=== PATIENT | male | born 1950 | race Caucasian/White ===

== ENCOUNTER → 2023-09-15 09:37 | Outpatient (REF) | payer MEDICARE, OTHER, SELFPAY | LOC: HWRAD 09:37 | PROVIDERS: ATTENDING PHYSICIAN Internal Medicine; FAMILY PHYSICIAN Family Medicine | DX: Z12.11 Encounter for screening for malignant neoplasm of colon (principal) | CPT/HCPCS: 74261 ==

== ENCOUNTER 2023-12-24 06:13 | Day surgery (SDC) | payer MEDICARE, OTHER, SELFPAY ==
[2023-12-24 08:22] VITALS: BP 119/66
[2023-12-24 08:42] VITALS: BMI 20.3
[2023-12-24 11:31] VITALS: BP 119/70
[2023-12-24 11:45] VITALS: BP 120/74
[2023-12-24 12:00] VITALS: BP 129/76
== END 2023-12-24 12:12 | disposition home or self-care (01) ==
LOC: SDS 06:13
PROVIDERS: ATTENDING PHYSICIAN Internal Medicine Gastroenterology
DX: C18.4 Malignant neoplasm of transverse colon (principal); D12.3 Benign neoplasm of transverse colon; K57.30 Diverticulosis of large intestine without perforation or abscess without bleeding; K64.0 First degree hemorrhoids; Q43.8 Other specified congenital malformations of intestine
CPT/HCPCS: 45386; 45385; 45380; 45381; 88305; 88342; C1726

== ENCOUNTER → 2024-01-12 10:04 | Outpatient (REF) | payer MEDICARE, OTHER, SELFPAY | LOC: RAD 10:04 | PROVIDERS: ATTENDING PHYSICIAN Surgery; FAMILY PHYSICIAN Family Medicine | DX: C18.4 Malignant neoplasm of transverse colon (principal) | CPT/HCPCS: 71260; 74177; Q9967 ==

== ENCOUNTER 2024-01-22 09:16 | Inpatient (IN) | payer MEDICARE, OTHER, SELFPAY ==
[2024-01-15 06:53] VITALS: BMI 24.8
[2024-01-15 08:59] LABS: INR 0.94; PT 12.6 Sec (11.4-14.6)
[2024-01-15 09:00] LABS: APTT 34.9 Sec (23.4-35.0)
[2024-01-22] VITALS (19 sets, daily range): BP systolic 91–144; BP diastolic 47–76; BMI 24.8
[2024-01-22] MEDS: TYLENOL 1000 MG PO (08:52)
[2024-01-22] MEDS: NORMOSOL-R 1000 IV ×2 (08:53→13:58)
[2024-01-22] MEDS: NEURONTIN 600 MG PO (08:53)
[2024-01-22] MEDS: ENTEREG 12 MG PO (08:53)
--- NOTE | 2024-01-22 12:45 | W.IMMPOSTOP ---
Addendum entered and electronically signed by Geovanny Romero MD 01/22/24 12:57:
Vamshi's significant other, Mary Lou, updated via voicemail message.
Original Note:
Surgical Immed Post Op Note
-
Primary Surgeon: Gigi Romero MD
Assisting Surgeon: JOSE Rivera
Pre-op Diagnosis: Transverse colon cancer
Post-op Diagnosis: same
Procedure Performed: robotic right colectomy
Anesthesia Type: general plus local
Specimen / Cultures: right colon (to include portion of transverse colon)
Estimated Blood Loss: 25 cc
Complications: no immediate
Operative Findings: 1) tumor with associated tattoo in proximal transverse colon 2) no obvious metastases
Hutchinson in bladder.
Will send to med surg.
[2024-01-22 13:39] LABS: % Basophils 0.2 % (0-2); % Eosinophils 0.1 % (0-6); % Immature Granulocytes 0.6 % (0-0.5); % Lymphocytes 5.8 % (20.5-51.1); % Monocytes 1.2 % (1.7-9.3); % Neutrophils 92.1 % (42.2-75.2); Absolute Immature Granulocytes 0.1 10^3/uL (0-0.05); Absolute Lymphocytes 0.7 10^3/uL (1.2-3.4); Absolute Monocytes 0.1 10^3/uL (0.1-0.6); Absolute Neutrophils 10.3 10^3/uL (1.4-6.5); Hematocrit 37.6 % (39.0-52.0); Mean Corp Hgb Conc. 34.6 g/dL (33.0-37.0); Mean Corpuscular Volume 89.7 fL (80.0-94.0); Mean Platelet Volume 9.5 fL (7.4-10.4); Nucleated Red Blood Cells % 0 % (-); Platelet Count 255 10^3/uL (130-400); Red Blood Cell Count 4.19 10^6/uL (4.70-6.10); Red Cell Dist. Width 14.6 % (11.5-14.5); White Blood Cell Count 11.2 10^3/uL (4.8-10.8)
[2024-01-22] MEDS: TORADOL 15 MG IV ×2 (13:58→20:35)
[2024-01-22 14:09] LABS: Blood Urea Nitrogen 20 mg/dl (9-20); Calcium 8.4 mg/dl (8.4-10.2); Carbon Dioxide 21 mmol/L (22-30); Chloride 103 mmol/L (98-107); Estimated Creatinine Clearance 49 ml/min; Glucose 106 mg/dl (70-99); Magnesium 2.1 mg/dl (1.6-2.3); Potassium 4.3 mmol/L (3.5-5.1); Sodium 132 mmol/L (135-145); eGFR > 60.00
--- NOTE | 2024-01-22 16:40 | PTCARENOTE ---
Patient admitted from [facility] post robotic right colectomy for colon cancer.Vital signs are stable.All 5 lap sites are without drainage.The patient denies any pain at present.Patient is in his bed with the call ramsay in reach.
[2024-01-22] MEDS: HEPARIN 5000 UNITS SC (18:07)
[2024-01-22] MEDS: TYLENOL 650 MG PO ×2 (18:08→20:35)
[2024-01-22] MEDS: CRESTOR 10 MG PO (18:08)
[2024-01-22 21:06] LABS: Hepatitis C Antibody Negative (Negative)
[2024-01-22] MEDS: TYLENOL PO (23:02)
[2024-01-23] MEDS: TORADOL 15 MG IV ×4 (01:34→19:29)
[2024-01-23] MEDS: NORMOSOL-R 1000 IV ×2 (01:34→13:47)
[2024-01-23 03:45] VITALS: BP 119/66
[2024-01-23] MEDS: TYLENOL PO (05:06)
[2024-01-23 05:54] VITALS: BMI 24.7
[2024-01-23 06:25] LABS: % Basophils 0.1 % (0-2); % Immature Granulocytes 0.6 % (0-0.5); % Lymphocytes 9.9 % (20.5-51.1); % Monocytes 6.4 % (1.7-9.3); Absolute Immature Granulocytes 0.1 10^3/uL (0-0.05); Absolute Monocytes 0.7 10^3/uL (0.1-0.6); Absolute Neutrophils 8.5 10^3/uL (1.4-6.5); Hematocrit 37.6 % (39.0-52.0); Hemoglobin 13.1 g/dL (13.0-18.0); Mean Corp Hgb Conc. 34.8 g/dL (33.0-37.0); Mean Corpuscular Hgb 31.2 pg (27.0-31.0); Mean Corpuscular Volume 89.5 fL (80.0-94.0); Mean Platelet Volume 9.4 fL (7.4-10.4); Nucleated Red Blood Cells % 0 % (-); Platelet Count 266 10^3/uL (130-400); Red Cell Dist. Width 14.6 % (11.5-14.5); White Blood Cell Count 10.2 10^3/uL (4.8-10.8)
[2024-01-23 06:55] LABS: Blood Urea Nitrogen 23 mg/dl (9-20); Calcium 8.1 mg/dl (8.4-10.2); Carbon Dioxide 22 mmol/L (22-30); Chloride 102 mmol/L (98-107); Estimated Creatinine Clearance 54 ml/min; Glucose 97 mg/dl (70-99); Magnesium 2.3 mg/dl (1.6-2.3); Potassium 4.8 mmol/L (3.5-5.1); Sodium 133 mmol/L (135-145); eGFR > 60.00
[2024-01-23 07:56] VITALS: BP 117/60
--- NOTE | 2024-01-23 08:35 | W.PN.CRS1 ---
Today's Communication / Plan
-
Clears
DC Hutchinson
DVT PPx with Lovenox
Ambulate twice daily
Assessment/Plan
-
73-year-old male with PMH of HLD, BPH, CVA who was found to have a transverse colon mass that was not endoscopically removable, presents for elective resection
POD 1 robotic right hemicolectomy
AFVSS
WBC 10.2, Hb 13.1 from 13.0, CR 1.1, UOP 1.1 L
� Advance to clear liquids
� Continue pain control with Tylenol, Toradol, Dilaudid as needed; continue Entereg
� Will start DVT PPx with Lovenox
� DC Hutchinson, monitor for void; continue Flomax
� Continue home meds
� OOB, encourage IS, ambulate twice daily
Subjective Data
Subjective Data
Date of Service: January 23, 2024
No overnight events.
Pain controlled.
Denies nausea/vomiting. Tolerating sips.
-flatus -BMs + Hutchinson
Pt is OOB.
Objective Data
-
Vital Signs
Temp Pulse Resp BP Pulse Ox
98.8 F 52 18 117/60 100
01/23/24 07:56 01/23/24 07:56 01/23/24 07:56 01/23/24 07:56 01/23/24 07:56
Intake & Output
01/22/24 01/23/24 01/24/24
06:59 06:59 06:59
Intake Total 1180 / 1180
Output Total 1100 / 1100
Balance 80 / 80
Intake:
Oral fluids 120 / 120
IV fluids (Total) 1060 / 1060
normosol 100 / 100
Output:
Urine, Hutchinson 1100 / 1100
Lab Results
01/23/24 04:43
01/23/24 04:43
Physical Exam
-
General: No Acute Distress and AOx3
HEENT: Grossly Normal
Abdomen: Soft, Distended (Minimally distended), Tender (Appropriately tender near incisions), No Guarding and No Rebound
Neurological: Other (Moving all extremities)
Skin: Warm and Dry
Wound: No Signs of Infection, Dressing in Place (With Dermabond) and No Skin Erythema
[2024-01-23] MEDS: ENTEREG 12 MG PO ×2 (09:15→19:29)
[2024-01-23] MEDS: PROTONIX 40 MG PO (09:15)
[2024-01-23] MEDS: TYLENOL 650 MG PO ×4 (09:15→19:28)
[2024-01-23] MEDS: LOW STRENGTH ASPIRIN 81 MG PO (09:15)
[2024-01-23] MEDS: FLOMAX 0.400000000000000022 MG PO (09:15)
--- NOTE | 2024-01-23 10:04 | CM ---
Patient seen at bedside with present. Patient lives in a 2 story home with no DME and uses the [facility] on [facility]. Patient PCP is Dr. Noonan. Patient states he is independent of ADL's and IADL's prior to admission. Patient plan is home with no
needs. CM will continue to follow for discharge plan home with no needs.
Plan; home with no needs; pending functional assessments
[2024-01-23 11:27] VITALS: BP 121/68
--- NOTE | 2024-01-23 14:32 | PN.CDI ---
CDI
- -
CDI:
Physician Documentation Request
Admit Date: 01/22/24 09:16
Dear Doctor Nick,
Please review the following and provide your response in the progress notes.
Clinical Indicators:
Pt admitted with transverse colon cancer s/p resection on 01/21
Sodium levels are as below/Did get IVFs NS
01/22/24 01/23/24
13:18 04:43
Sodium 132 L 133 L
Based on the above, could you clarify in the progress notes, the appropriate diagnosis, if significant, that supports the above abnormalities and additional evaluation, monitoring and/or treatment rendered:
Hyponatremia
Abnormal lab value of clinical insignificance
Other
Use of terms such as suspected, likely, concern for, or probable (associated with a specific diagnosis that is being evaluated, monitored, or treated as if it exists) are acceptable and can be coded in the inpatient setting, when documented at the
time of discharge.
Thank you,
Radha Miguel RN
CDI Specialist
[place] [facility]
Please use your independent medical judgment in providing your response.
[2024-01-23 15:19] VITALS: BP 125/60
[2024-01-23] MEDS: CRESTOR 10 MG PO (17:19)
[2024-01-23 22:38] VITALS: BP 119/65
[2024-01-23 23:20] VITALS: BP 119/65
[2024-01-24] MEDS: TYLENOL 650 MG PO ×4 (00:30→15:25)
[2024-01-24] MEDS: TORADOL 15 MG IV ×3 (00:30→12:25)
[2024-01-24] MEDS: TYLENOL PO (04:40)
[2024-01-24 07:00] VITALS: BP 134/67
[2024-01-24] MEDS: ENTEREG 12 MG PO (08:16)
[2024-01-24] MEDS: PROTONIX 40 MG PO (08:16)
[2024-01-24] MEDS: FLOMAX 0.400000000000000022 MG PO (08:16)
[2024-01-24] MEDS: LOW STRENGTH ASPIRIN 81 MG PO (08:16)
--- NOTE | 2024-01-24 09:56 | CM ---
Patient is for possible discharge to home today, spouse to transport no needs.
Plan; Home no needs.
--- NOTE | 2024-01-24 14:56 | W.PN.CRS1 ---
Addendum entered and electronically signed by Geovanny Romero MD 01/26/24 12:19:
Of note, patient had mild hyponatremia without significant clinical significance.
Original Note:
Today's Communication / Plan
-
Low risk
If tolerating, DC
Assessment/Plan
-
73-year-old male with PMH of HLD, BPH, CVA who was found to have a transverse colon mass that was not endoscopically removable, presents for elective resection
POD 2 robotic right hemicolectomy for transverse colon cancer
� Advance to low residue
� Continue pain control with Tylenol, Toradol, Dilaudid as needed; continue Entereg
� Continue DVT PPx with Lovenox
� Voiding; continue Flomax
� Continue home meds
� OOB, encourage IS, ambulate twice daily
Dispo�if tolerating low residue, okay for DC this evening versus tomorrow
Subjective Data
Subjective Data
Date of Service: January 24, 2024
No overnight events.
Pain controlled.
Denies nausea/vomiting. Tolerating diet.
+flatus +BMs (nonbloody) +voiding
Pt is OOB.
Objective Data
-
Vital Signs
Temp Pulse Resp BP Pulse Ox
97.7 F 50 16 134/67 98
01/24/24 07:00 01/24/24 07:00 01/24/24 07:00 01/24/24 07:00 01/24/24 07:00
Intake & Output
01/23/24 01/24/24 01/25/24
06:59 06:59 06:59
Intake Total 1180 / 1180 2460 / 2460
Output Total 1100 / 1100 1350 / 1350
Balance 80 / 80 1110 / 1110
Intake:
Oral fluids 120 / 120 1100 / 1100
IV fluids (Total) 1060 / 1060 1360 / 1360
normosol 100 / 100
Output:
Urine, Hutchinson 1100 / 1100 200 / 200
Urine, Voided 1150 / 1150
Other:
Number of approximated MODERATE 2
amounts of urine
Number of approximated LARGE 2
amounts of urine
Lab Results
01/23/24 04:43
01/23/24 04:43
Physical Exam
-
General: No Acute Distress and AOx3
HEENT: Grossly Normal
Abdomen: Soft, Non Distended, Tender (Appropriately tender), No Guarding, No Rebound and Other (Incisions well-approximated without erythema or drainage)
Neurological: Other (Moving all extremities, no gross deficits)
Skin: Warm and Dry
Wound: Dressing in Place
[2024-01-24 15:15] VITALS: BP 108/61
--- NOTE | 2024-01-24 16:25 | W.DCSUMMARY ---
Discharge Summary
Discharge Data
Date of Admission: 01/22/24
Date of Discharge: 01/24/24
-
Pending Results: No
Hospital Course
73 yo male found to have a transverse colon mass that was not endoscopically removable who presented for elective resection with robotic right hemicolectomy. He tolerated the procedure well without complication. Diet was able to be advanced and well
tolerated prior to discharge with signs of good bowel recovery. He had minimal pain post operatively. He was discharged to home with spouse with outpatient planned in the coming weeks.
Discharge Plan
-
Patient Disposition: Home (Routine Discharge)
Discharge Diagnosis/Procedures: Right hemicolectomy
Condition: Good
Diet: Low Fiber
Activity: No strenuous activity
Additional Activity: Do not lift over 10lbs until cleared by your surgeon
Driving Restrictions: Drive once comfortable twisting/off narcotics
Bathing Restrictions: OK to Shower
Wound Care: Ok to shower and wash your incisions gently with soap and water. Allow the glue to flake off on its own.
Activity Restrictions/Additional Instructions:
Call your surgeon if you have nausea with vomiting, worsening pain or a fever >100.5
Referrals:
Geovanny Romero MD [Active] - 02/06/24
Eulalio Noonan MD [Family Provider] -
Prescriptions:
New
acetaminophen [acetaminophen] 325 mg tablet
650 mg PO Q4HPRN PRN (Reason: mild pain) Qty: 1 0RF
ibuprofen 200 mg tablet
400 - 600 mg PO Q6HPRN PRN (Reason: moderate pain) Qty: 1 0RF
oxycodone 5 mg tablet
5 mg PO Q4HPRN PRN (Reason: breakthrough/severe pain) Qty: 10 0RF
Continued
tamsulosin 0.4 mg Capsule
0.4 mg PO DAILY
Co Q-10
1 tab PO DAILY
Fish Oil
1 tab PO QPM
turmeric
2 tab PO DAILY
rosuvastatin 10 mg Tablet
10 mg PO QPM Qty: 30 0RF
aspirin 81 mg Tablet,Chewable
81 mg PO DAILY Qty: 30 0RF
multivitamin Tablet
1 tab PO DAILY
Nf Cbg Cbd Hemp Oil
50 ml PO DAILY
Discontinued
metronidazole 500 mg Tablet
500 mg PO DIRECTED
neomycin 500 mg Tablet
1 g PO DIRECTED
Sutab 1.479-0.188- 0.225 gram Tablet
0 tab PO DIRECTED
Sutab 1.479-0.188- 0.225 gram Tablet
0 tab PO PER PKG DIR
Discharge Orders:
Discharge Patient (As Directed); Ordered 01/24/24
Ordered By: Jayashree Stearns
Discharge Date and Time
Print Language: MACEDONIAN
== END 2024-01-24 15:15 | disposition home or self-care (01) | DRG 330 ==
LOC: 2 SOUTH 09:16
PROVIDERS: ADMITTING PHYSICIAN Surgery; FAMILY PHYSICIAN Family Medicine
PROC: 8E0W4CZ Robotic Assisted Procedure of Trunk Region, Percutaneous Endoscopic Approach (ICD-10-PCS; 2024-01-22)
PROC: 0DTF4ZZ Resection of Right Large Intestine, Percutaneous Endoscopic Approach (ICD-10-PCS; 2024-01-22)
DX: C18.4 Malignant neoplasm of transverse colon (principal); E87.1 Hypo-osmolality and hyponatremia; E78.5 Hyperlipidemia, unspecified; N40.0 Benign prostatic hyperplasia without lower urinary tract symptoms; Z86.73 Personal history of transient ischemic attack (TIA), and cerebral infarction without residual deficits; Z79.82 Long term (current) use of aspirin; Z80.1 Family history of malignant neoplasm of trachea, bronchus and lung; Z82.49 Family history of ischemic heart disease and other diseases of the circulatory system; Z82.5 Family history of asthma and other chronic lower respiratory diseases
CPT/HCPCS: 88309; 36415; 80048; 83735; 85025; 85610; 85730; 86803; 86850; 86900; 86901; 88342; 93005; 99406; J1335

== ENCOUNTER 2024-05-20 06:20 | Day surgery (SDC) | payer MEDICARE, OTHER, SELFPAY ==
[2024-05-20] VITALS (10 sets, daily range): BP systolic 85–132; BP diastolic 52–77; BMI 24.3
[2024-05-20] MEDS: TYLENOL 1000 MG PO (06:44)
--- NOTE | 2024-05-20 07:21 | W.SUR.PREOP ---
Pre-Operative Surgical Note
-
I have examined this patient prior to the performance of the scheduled procedure.
The patient's condition is unchanged from the time of the current History and
Physical and the patient is able to undergo the scheduled procedure.
--- NOTE | 2024-05-20 07:22 | HP.FOC2 ---
Focused History & Physical
Chief Complaint
HPI:
Chief Complaint: Right inguinal hernia
HPI / Indication for Planned Procedure: Robotic right inguinal hernia repair with mesh
Relevant Past Medical History: Negative
Relevant Social History: Negative
Relevant Family History: Negative
Relevant Past Surgical History: Positive for (Robotic right colectomy)
Review of Systems
Review of Pertinent Systems: All Systems Negative
Medication
See Medication form for detailed medications: Yes
Medication List (including Herbals & OTC):
tamsulosin 0.4 mg capsule 0.4 mg PO QPM Urinary Issue 05/06/23
aspirin 81 mg chewable tablet 81 mg PO DAILY #30 tabs 05/07/23
rosuvastatin 10 mg tablet 10 mg PO QPM #30 tabs 05/07/23
Nf Cbg Cbd Hemp Oil 50 ml PO DAILY PRN Pain 12/24/23
multivitamin 1 tab PO DAILY Supplement 12/24/23
ashwagandha extract 500 mg capsule 1,000 mg PO DAILY 05/17/24
coQ10 (ubiquinol) 100 mg capsule 100 mg PO DAILY 05/17/24
turmeric root extract 500 mg capsule 1,000 mg PO DAILY 05/17/24
Medications Reviewed: Yes
Allergies and Reactions
Patient has Allergies: Yes
Noted Allergies and Reactions:
Allergy/AdvReac Type Severity Reaction Status Date / Time
doxycycline Allergy Unknown Verified 05/20/24 06:27
Pertinent Physical Exam
All Other Systems: Negative
Head/Neck: Normal
Diagnosis / Assessment
This is a 73-year-old male with a symptomatic right inguinal hernia
Plan / Procedure
Robotic right inguinal hernia repair with mesh.
Anesthesia/Sedation to be done by Anesthesia Provider: Yes
--- NOTE | 2024-05-20 09:17 | W.IMMPOSTOP ---
Surgical Immed Post Op Note
-
Primary Surgeon: Reno Katz MD
Assisting Surgeon: None
Pre-op Diagnosis: Right inguinal hernia
Post-op Diagnosis: Same
Procedure Performed: Robotic right inguinal hernia repair with mesh
Anesthesia Type: General
Specimen / Cultures: Cord lipoma
Estimated Blood Loss: 7 cc
Complications: None
Operative Findings: Distended bladder noted at the start of the case, Hutchinson placed intraoperatively and removed postoperatively. Indirect inguinal hernia with small bowel and omentum in the hernia. Cord lipoma as well as midline preperitoneal fat
also noted to be herniating through the defect. All reduced, cord lipoma removed and sent for pathology. No direct or femoral component. N.p.o. reinforced with a large right 3D max Bard soft, mid weight, uncoated polypropylene mesh.
--- NOTE | 2024-05-20 09:20 | OR.RPT ---
Operative Report
Operative Report
Patient Name: Paco Nuñez
: 1950
Date of Operation: 05/20/2024
Preoperative Diagnosis: Reducible Inguinal hernia, right
Postoperative Diagnosis: Same
Procedure(s):
Robotic right inguinal Hernia Repair with mesh, (DEJA approach)
Surgeon(s):
Dr. Katz
Industrial Safety Engineer(s):
TRANG Malhotra
Anesthesia: General
Estimated Blood Loss: 7 cc
Urine Output: None
Drains/Lines/Implants: Large 3D Max Bard mid weight mesh
Specimens: Cord lipoma
Indication for surgery: The patient has a history of groin pain and noted on exam to have a right inguinal Hernia. Following review of therapeutic options they have elected to undergo a minimally invasive repair.
Operative Findings: Distended bladder noted at the start of the case, Hutchinson placed intraoperatively and removed postoperatively. No left inguinal hernia noted. Right indirect inguinal hernia with small bowel and omentum in the hernia. Cord lipoma
as well as midline preperitoneal fat also noted to be herniating through the defect. All reduced, cord lipoma removed and sent for pathology. No direct or femoral component. N.p.o. reinforced with a large right 3D max Bard soft, mid weight,
uncoated polypropylene mesh.
Details of the operation:
The patient was brought to the Operating Room and placed in the supine position with the arms tucked. IV antibiotics were infused and Venodyne stockings placed. Following uneventful induction of general endotracheal anesthesia, an orogastric tube
were placed. The abdomen was prepped and draped in the usual sterile fashion. The abdomen was entered using a Veress technique which required 1 pass, pneumoperitoneum to 15 mmHg was obtained without difficulty. An 8mm trochar was passed through
the abdominal wall roughly 20 cm cephalad to the inguinal canal. We then confirmed that no inadvertent injury was made while passing the trocar or Veress needle. We then placed two additional 8 mm ports in the left upper and right upper quadrants.
We did reuse his left upper quadrant port sites from his prior colon operation. We then docked the robot with a Prograsper in the left hand port and monopolar scissors in the right. We immediately noted a very distended bladder despite the
patient voiding prior to the OR. I had the circulating nurse place a Hutchinson catheter sterilely under the drapes which was done without issue. No hernia defect was noted on the left, an indirect right inguinal hernia defect on the right was noted
with small bowel which was easily reduced with external pressure and omentum which was tethered in the hernia defect. We began by carefully excising the omentum off of the hernia sac using electrocautery. We then created a flap at the level of the
ASIS laterally working our way medially to the medial umbilical fold. Staying onto the peritoneum we were able to circumferentially dissect around the hernia sac and and peel it off of the underlying spermatic cord and testicular vessels, taking
care to preserve them. Medially we identified the midline pubis as well as Joni's ligament and ensured to dissect 2 cm below the pubic rim over the bladder. After exposure of the entire myopectineal orifice we identified and reduced: A medium
sized indirect inguinal hernia, no direct inguinal hernia, no femoral hernia, a medium cord lipoma, which was removed. A Ray-Rosalind was placed in the abdomen briefly to help mop up some of the bleeding, which was mostly from raw surface whose, likely
secondary to his baby aspirin and fish oil use. Hemostasis was confirmed.
We then fixated a large 3D max mesh with a 2-0 Vicryl stitch at coopers medially and superior laterally. The flap was then closed with a running 2-0 barbed monocryl suture ensuring that the tail was cut flush with the medial fat pad so that no
barbs were exposed. During the closure of the flap an Angiocath was inserted and 20 cc of quarter percent Marcaine was instilled. The area in the flap cavity was then evacuated of air confirming that the mesh was flush and there were no folds.
The Ray-Rosalind, all needles and instruments were then removed and the robot was undocked. The abdomen was then desufflated, and pneumoperitoneum evacuated. All skin sites were then closed with 4-0 Monocryl followed by Dermabond. Counts were correct
and overall, the patient tolerated the procedure well and was taken to the Recovery Room postoperatively in stable condition. The Hutchinson was removed at the end of the case.
I was the attending physician and performed the procedure with assistance of the PA above. The assistance of TRANG Malhotra was required due to the complexity of the procedure. During the procedure Nubia assisted with retraction, resection, and
closure of the wound. I was present for all portions of the case, excluding skin closure.
Reno Katz MD
== END 2024-05-20 12:07 | disposition home or self-care (01) ==
LOC: SDS 06:20
PROVIDERS: ATTENDING PHYSICIAN Surgery
DX: K40.90 Unilateral inguinal hernia, without obstruction or gangrene, not specified as recurrent (principal)
CPT/HCPCS: 49650; 88304; C1781

== ENCOUNTER 2024-09-02 21:26 | Inpatient (IN) | payer MEDICARE, OTHER, SELFPAY ==
[2024-09-02 14:16] VITALS: BMI 25.5
[2024-09-02 14:20] VITALS: BP 141/71
--- NOTE | 2024-09-02 14:29 | ED.GENMED ---
ED Provider Triage
<Maria Guadalupe Medina PA-C - Last Filed: 09/02/24 19:44>
-
Patient seen by provider in Triage?: Seen in Triage
Attestation: A medical screening examination has been initiated by a qualified medical provider. Based on the assessment performed at this time, it has been determined that an emergent medical condition may exist and the patient has been informed
that further medical evaluation and possible additional diagnostic testing may be needed.
HPI: 73yoM here for constipation and bloating. Last BM 6 days ago. Passing only a small amount of flatus. One episode of vomiting last night. Also c/o L flank pain. Hx of colon cancer s/p colectomy. Sent in by colorectal surgery for concern for a
blockage.
GENERAL: Alert , in no apparent distress
EYE: No visual abnormalities.
NECK: Trachea midline
ENT: No visible abnormalities.
LUNGS: No acute respiratory distress
NEUROLOGICAL: Alert and oriented
SKIN: Skin intact. No visible changes.
MUSCULOSKELETAL: Moving extremities normally
PSYCH: Normal and appropriate interaction.
This is a medical evaluation conducted in person to initiate diagnostic evaluation and provide initial therapeutics. Please see further documentation by the treating clinician.
Abdominal labs, UA, and CT abdomen with PO contrast ordered.
History of Present Illness
<Maria Guadalupe Medina PA-C - Last Filed: 09/02/24 19:44>
General
Chief Complaint: Bowel Problem
Source: patient
Exam Limitations: none
Time Seen by Provider: 09/02/24 18:21
History of Present Illness
History of Present Illness:
73yoM with a history of hyperlipidemia, colon cancer s/p colectomy, and right inguinal hernia repair presenting for evaluation of constipation and abdominal pain. He has been constipated for about a week. Patient is having generalized abdominal
pain as well as bloating. He had an episode of vomiting last night but none since. He has not passed any gas today. He called his colorectal surgery team today and talked to the PA on-call. He was instructed to go to the ED for concern for a
blockage. Patient also reports some left lower back/flank pain. He denies any fevers or urinary symptoms.
Past History
<Maria Guadalupe Medina PA-C - Last Filed: 09/02/24 19:44>
Past History
ED Past Medical History: Hypercholesterolemia
ED Past Surgical History: Orthopedic
Social History
Tobacco: Smoker (Pipe)
Phy Exam
<Maria Guadalupe Medina PA-C - Last Filed: 09/02/24 19:44>
General Physical Exam
General Presentation: well appearing and no apparent distress
General Skin: warm and dry
General Habitus: normal
General Mental: alert
ENT Exam
ENT Exam: normocephalic
Cardiovascular Exam
Cardiovascular Exam: regular rate/rhythm
Pulmonary Exam
Pulmonary Exam: lungs clear, no respiratory distress, no rales, no crackles and no rhonchi
Gastrointestinal Exam
Gastrointestinal Exam: distended and other (Abdomen distended with generalized tenderness. No rebound or guarding. )
Neurological Exam
Neurological Exam: alert
Pari Coma Scale
Eye Opening: Spontaneous
Verbal Response: Oriented
Motor Response: Obeys Commands
GCS Total Score: 15
Skin Exam
Skin Exam: normal color and warm/dry
Psychiatric Exam
Psychiatric Exam: normal mood/affect
Course
<Maria Guadalupe Medina PA-C - Last Filed: 09/02/24 19:44>
Orders/Labs/Results
Orders:
Orders
09/02/24 14:28
Iohexol [Omnipaque] See Protocol PO NOW STA
09/02/24 14:29
CT Abd/pel W Iv And Oral Contr Urgent
Comment:
Reason For Exam: abd bloating/pain, constipation
Urinalysis Reflex To Culture Urgent
09/02/24 14:31
Complete Blood Count/With Diff Urgent
Comprehensive Metabolic Panel Urgent
Lipase Urgent
09/02/24 18:22
0.9% Sodium Chloride 500 ml [Nss] 500 ml IV BOLUS
09/02/24 18:55
CT Abd/pel Without Iv Or Oral IN AM
Comment: Colorectal requesting CT before 8 AM
Reason For Exam: abd pain, possible obstruction
Consult Colorectal Surgery [ColoRectal Surgery Consult] Urgent
Consulting Provider: Geovanny Romero
Was physician already notified: Yes
09/02/24 18:57
Hutchinson Placement- Treatment ONCE
Reason for insertion: Acute Retention
09/02/24 19:30
NG Tube [GI tube insertion- Treatment] ONCE
Lidocaine 2% [Lidocaine Uro-Jet 2%] 1 syringe .ROUTE .K-MED ONE
Abnormal Lab Results
09/02/24
14:31
RBC 4.23 L 10^6/uL
(4.70-6.10)
Hgb 12.9 L g/dL
(13.0-18.0)
Hct 38.5 L %
(39.0-52.0)
RDW 14.6 H %
(11.5-14.5)
Abs Immat Gran (auto) 0.1 H 10^3/uL
(0-0.05)
Absolute Neuts (auto) 7.5 H 10^3/uL
(1.4-6.5)
Absolute Monos (auto) 1.0 H 10^3/uL
(0.1-0.6)
Immature Gran % 0.6 H %
(0-0.5)
Lymphocytes % 14.8 L %
(20.5-51.1)
Monocytes % 9.6 H %
(1.7-9.3)
Sodium 134 L mmol/L
(135-145)
BUN 40 H mg/dl
(9-20)
Creatinine 1.6 H mg/dL
(0.7-1.3)
Glucose 101 H mg/dl
(70-99)
09/02/24 14:31
09/02/24 14:31
Vital Signs
Initial and Last Documented VS:
Initial Vital Signs
Temp Pulse Resp BP Pulse Ox
97.6 F 65 16 141/71 99
09/02/24 14:20 09/02/24 14:20 09/02/24 14:20 09/02/24 14:20 09/02/24 14:20
Last Documented Vital Signs
Temp Pulse Resp BP Pulse Ox
97.6 F 65 16 141/71 99
09/02/24 14:20 09/02/24 14:20 09/02/24 14:20 09/02/24 14:20 09/02/24 14:20
<Kulwant Pabon, DO - Last Filed: 09/02/24 19:14>
Orders/Labs/Results
Orders:
Orders
09/02/24 14:28
Iohexol [Omnipaque] See Protocol PO NOW STA
09/02/24 14:29
CT Abd/pel W Iv And Oral Contr Urgent
Comment:
Reason For Exam: abd bloating/pain, constipation
Urinalysis Reflex To Culture Urgent
09/02/24 14:31
Complete Blood Count/With Diff Urgent
Comprehensive Metabolic Panel Urgent
Lipase Urgent
09/02/24 18:22
0.9% Sodium Chloride 500 ml [Nss] 500 ml IV BOLUS
09/02/24 18:55
CT Abd/pel Without Iv Or Oral IN AM
Comment: Colorectal requesting CT before 8 AM
Reason For Exam: abd pain, possible obstruction
Consult Colorectal Surgery [ColoRectal Surgery Consult] Urgent
Consulting Provider: Geovanny Romero
Was physician already notified: Yes
09/02/24 18:57
Hutchinson Placement- Treatment ONCE
Reason for insertion: Acute Retention
09/02/24 19:30
NG Tube [GI tube insertion- Treatment] ONCE
Lidocaine 2% [Lidocaine Uro-Jet 2%] 1 syringe .ROUTE .STK-MED ONE
Abnormal Lab Results
09/02/24
14:31
RBC 4.23 L 10^6/uL
(4.70-6.10)
Hgb 12.9 L g/dL
(13.0-18.0)
Hct 38.5 L %
(39.0-52.0)
RDW 14.6 H %
(11.5-14.5)
Abs Immat Gran (auto) 0.1 H 10^3/uL
(0-0.05)
Absolute Neuts (auto) 7.5 H 10^3/uL
(1.4-6.5)
Absolute Monos (auto) 1.0 H 10^3/uL
(0.1-0.6)
Immature Gran % 0.6 H %
(0-0.5)
Lymphocytes % 14.8 L %
(20.5-51.1)
Monocytes % 9.6 H %
(1.7-9.3)
Sodium 134 L mmol/L
(135-145)
BUN 40 H mg/dl
(9-20)
Creatinine 1.6 H mg/dL
(0.7-1.3)
Glucose 101 H mg/dl
(70-99)
09/02/24 14:31
09/02/24 14:31
Vital Signs
Initial and Last Documented VS:
Initial Vital Signs
Temp Pulse Resp BP Pulse Ox
97.6 F 65 16 141/71 99
09/02/24 14:20 09/02/24 14:20 09/02/24 14:20 09/02/24 14:20 09/02/24 14:20
Last Documented Vital Signs
Temp Pulse Resp BP Pulse Ox
97.6 F 65 16 141/71 99
09/02/24 14:20 09/02/24 14:20 09/02/24 14:20 09/02/24 14:20 09/02/24 14:20
<Maria Guadalupe Medina PA-C - Last Filed: 09/02/24 19:44>
MDM/Problems Addressed
Differential Diagnosis Includes:
73yoM here with constipation x 1 week and abdominal pain/bloating. Hx of colon cancer s/p colectomy. VSS. He is well appearing in no distress. Abdomen is distended with generalized tenderness. No signs of peritonitis noted. Differential diagnosis
includes but is not limited to: constipation, bowel obstruction, perforated viscous, stercoral colitis
Initial ED plan: Patient initially seen in triage. Labs show a creatinine of 1.6 which is increased compared to baseline of 1.1. CT performed with IV and PO contrast. Results are pending. IV fluid bolus ordered.
<Maria Guadalupe Medina PA-C - Last Filed: 09/02/24 19:44>
*Critical Care Note
Total Time (30-74mins, 75-104mins- exclusive of procedures): Not Applicable
<Maria Guadalupe Medina PA-C - Last Filed: 09/02/24 19:44>
Update Note
Update Note:
CT shows findings concerning for a large bowel obstruction and sigmoid stricture. Imaging also shows distended bladder. Patient was evaluated by colorectal surgery at bedside. Plan is for Hutchinson catheter and NG tube placement. Repeat CT scan
planned for the morning to determine next steps. No indication for acute surgical intervention. Patient admitted to the hospitalist service for further management.
ED Attending Note
<Maria Guadalupe Medina PA-C - Last Filed: 09/02/24 19:44>
-
Portions of this chart may have been created with voice recognition software.� Occasional wrong word or��sound alike� substitutions may have occurred due to the inherent limitations of voice recognition software.
<Kulwant Pabon DO - Last Filed: 09/02/24 19:14>
ED Attending Note
Patient seen and examined by attending physician: Yes
I performed the substantive portion of visit, reviewed & personally made and approve the management plan that is documented in note by myself or MELINA.: Yes
ED Attending Note:
I have seen and evaluated the patient with a [id number] encounter. I have spoken to the advance practicer provider and involved in the medical history, the physical exam, medical decision making.
Evaluation and management service: agree unless noted differently below.
Results interpretation: agree unless noted differently below.
Focused HPI: 73-year-old male presenting with abdominal pain, distention and decreased bowel movements for a week. Patient had right hemicolectomy 6 to 7 months ago for stage I colon cancer
Physical exam: Distended abdomen. Mildly uncomfortable
Medical Decision Making: Colorectal surgery evaluated the patient. Apparently, there is concern for possible sigmoid stricture. They suggest admit and will follow in the morning for repeat CT to assess for obstruction. Will place Hutchinson catheter
for urinary distention. Patient understands that if he feels worse or develops nausea and vomiting, will place NG tube
Discharge Plan
Departure
Patient Disposition: Admit
Date of Disposition: 09/02/24
Time of Disposition: 19:08
Presentation/result/management discussed w/ accepting MD/DO: Hospitalist
Discharge Problem:
Large bowel obstruction, Acute kidney injury
Prescriptions:
No Action
tamsulosin 0.4 mg Capsule
0.4 mg PO QPM
rosuvastatin 10 mg Tablet
10 mg PO QPM Qty: 30 0RF
aspirin 81 mg Tablet,Chewable
81 mg PO DAILY Qty: 30 0RF
multivitamin Tablet
1 tab PO DAILY
Nf Cbg Cbd Hemp Oil
50 ml PO DAILYPRN PRN (Reason: mild Pain)
turmeric root extract 500 mg Capsule
1,000 mg PO DAILY
coQ10 (ubiquinol) 100 mg Capsule
100 mg PO DAILY
acetaminophen [acetaminophen] 325 mg tablet
650 mg PO Q6HPRN PRN (Reason: mild pain) Qty: 14 0RF
polyethylene glycol 3350 [Miralax] 17 gram Powder In Packet
17 g PO DAILYPRN PRN (Reason: constipation)
ciprofloxacin HCl 500 mg Tablet
500 mg PO BID
Patient Comments:
patien to take for 14 days starting 08/31/24
docusate sodium [Colace] 100 mg Capsule
100 mg PO BIDPRN PRN (Reason: constipation)
Interventions
Interventions:
*Risk Screen - Suicide Last Done: 09/02/24 14:20
*General Assessment Last Done: 09/02/24 14:20
*ED COVID-19 Vaccine History Last Done: 09/02/24 14:20
Discharge Date and Time
Print Language: YI
[2024-09-02] MEDS: OMNIPAQUE 50 ML PO (14:34)
[2024-09-02 14:43] LABS: % Basophils 0.3 % (0-2); % Eosinophils 0.3 % (0-6); % Immature Granulocytes 0.6 % (0-0.5); % Lymphocytes 14.8 % (20.5-51.1); % Monocytes 9.6 % (1.7-9.3); % Neutrophils 74.4 % (42.2-75.2); Absolute Immature Granulocytes 0.1 10^3/uL (0-0.05); Absolute Lymphocytes 1.5 10^3/uL (1.2-3.4); Absolute Neutrophils 7.5 10^3/uL (1.4-6.5); Hematocrit 38.5 % (39.0-52.0); Hemoglobin 12.9 g/dL (13.0-18.0); Mean Corp Hgb Conc. 33.5 g/dL (33.0-37.0); Mean Corpuscular Hgb 30.5 pg (27.0-31.0); Mean Platelet Volume 9.2 fL (7.4-10.4); Nucleated Red Blood Cells % 0 % (-); Platelet Count 318 10^3/uL (130-400); Red Blood Cell Count 4.23 10^6/uL (4.70-6.10); Red Cell Dist. Width 14.6 % (11.5-14.5); White Blood Cell Count 10.1 10^3/uL (4.8-10.8)
[2024-09-02 15:07] LABS: ALT (SGPT) 22 U/L (0-50); AST (SGOT) 28 U/L (17-59); Albumin 4.1 g/dl (3.5-5.0); Alkaline Phosphatase 71 U/L (38-126); Blood Urea Nitrogen 40 mg/dl (9-20); Carbon Dioxide 25 mmol/L (22-30); Chloride 98 mmol/L (98-107); Glucose 101 mg/dl (70-99); Lipase 46 U/L (23-300); Potassium 4.8 mmol/L (3.5-5.1); Sodium 134 mmol/L (135-145); Total Bilirubin 0.9 mg/dl (0.2-1.3); Total Protein 6.8 g/dl (6.3-8.2); eGFR 45.21
[2024-09-02] MEDS: NSS 500 IV (18:47)
--- NOTE | 2024-09-02 19:10 | CON.CRS ---
Consultation
-
Reason for Consultation: Concern for bowel obstruction
Medical History
-
Chief Complaint: No BM for a week
History of Present Illness:
Patient is 73-year-old male well-known to me as I previously performed a robotic right colectomy on him for stage I colon cancer 7 months ago on 01/22/2024. Prior to that operation, he had undergone a colonoscopy by Dr. Olivares where she could not
get through the sigmoid with concern for sigmoid stenosis. This was followed by a colonoscopy by Dr. Pino Aaron who was able to maneuver through the sigmoid successfully and get to the tumor in the proximal transverse colon. Of note the patient also
underwent a robotic right inguinal hernia repair with mesh by Dr. Reno Katz more recently on 05/20/2024. He has been doing well until taking a vacation with his this past week when he started feeling that he could not urinate and had lower
abdominal discomfort. His presumed that he had a UTI. He was ultimately put on Cipro empirically by his PCP. Per the patient, there was blood in his urine that led the PCP to put him on the antibiotic. Synchronously, the patient has noticed
that he has not had a BM for about a week. He also has been having some abdominal discomfort and distention. He had 1 bout of emesis last night. He reached out to my office earlier today and evaluation in the ER was recommended. Blood work in
the ER reveals a normal white count of 10.1. Interestingly his BUN and creatinine are elevated at 40 and 1.6. His prior creatinine on 01/23/2024 was normal at 1.1. He is afebrile with stable vitals. He did undergo a CT of the abdomen and pelvis
with IV and oral contrast in the ER. I reviewed the images with Dr. Lima of radiology. This reveals moderate small bowel distention without a transition point. There is a normal-appearing patent ileal transverse colon anastomosis. The colon
itself is not practically distended but is filled with fluid/matter. The sigmoid is somewhat decompressed. Interestingly the bladder is quite distended, in fact severely so, and this is pushing on the sigmoid as well as causing bilateral
hydronephrosis. Dr. Yadav recommended Hutchinson insertion as a first step. I evaluated the patient in the ER with his at the bedside. He denies nausea currently.
Past Medical History
Past Medical History: Hypercholesterolemia and Other (BPH/elevated PSA; Lyme's disease; mini stroke)
Past Surgical History: Other (As above plus left total hip replacement.)
Social History
Tobacco: Smoker
Alcohol: Daily
Personal:
Living: With Family
Family History
Family History: Reviewed & Not Pertinent
Allergies / Home Medications
Allergy/AdvReac Type Severity Reaction Status Date / Time
doxycycline Allergy Unknown Verified 09/02/24 14:27
�Medication �Instructions �Recorded �Confirmed �Type
tamsulosin 0.4 mg capsule 0.4 mg PO QPM Urinary Issue 05/06/23 05/20/24 History
aspirin 81 mg chewable tablet 81 mg PO DAILY #30 tabs 05/07/23 05/20/24 Rx
rosuvastatin 10 mg tablet 10 mg PO QPM #30 tabs 05/07/23 05/20/24 Rx
Nf Cbg Cbd Hemp Oil 50 ml PO DAILY PRN Pain 12/24/23 05/20/24 History
multivitamin 1 tab PO DAILY Supplement 12/24/23 05/20/24 History
ashwagandha extract 500 mg capsule 1,000 mg PO DAILY 05/17/24 05/17/24 History
coQ10 (ubiquinol) 100 mg capsule 100 mg PO DAILY 05/17/24 05/17/24 History
turmeric root extract 500 mg 1,000 mg PO DAILY 05/17/24 05/20/24 History
capsule
acetaminophen 325 mg tablet 650 mg (2 x 325 mg) PO Q6HPRN PRN 05/20/24 Rx
mild pain #14 tabs
ibuprofen 600 mg tablet 600 mg PO Q6H PRN pain #14 tabs 05/20/24 Rx
Review of Systems
-
A 10 point review of systems was completed, and was negative except as per HPI.
Physical Exam
Vital Signs
Temp 97.6 F 09/02/24 14:20
Pulse 65 09/02/24 14:20
Resp Rate 16 09/02/24 14:20
Blood pressure 141/71 09/02/24 14:20
SaO2 99 09/02/24 14:20
Lab Results / Allergies
09/02/24 14:31
09/02/24 14:31
WBC 10.1 10^3/uL (4.8-10.8) 09/02/24 14:31
Hgb 12.9 g/dL (13.0-18.0) L 09/02/24 14:31
Hct 38.5 % (39.0-52.0) L 09/02/24 14:31
Plt Count 318 10^3/uL (130-400) 09/02/24 14:31
Abs Immat Gran (auto) 0.1 10^3/uL (0-0.05) H 09/02/24 14:31
Neutrophils % 74.4 % (42.2-75.2) 09/02/24 14:31
Allergy/AdvReac Type Severity Reaction Status Date / Time
doxycycline Allergy Unknown Verified 09/02/24 14:27
Physical Exam
General: Well Developed
Respiratory: Clear
Cardiac: Regular Rhythm
GI: Tender (Mild in all 4 quadrants) and Distended
Skin: Warm
Neuro: AO x 3
Psych: Calm
Data Reviewed
-
CT Scan: Image Personally Visualized and interpreted, Report Reviewed by me, Discussed with Physician, Discussed with Patient and Discussed with Family
Labs: Labs Reviewed by me, Discussed with Physician, Discussed with Patient and Discussed with Family
Old Records: Reviewed
Assessment / Plan
-
73-year-old male about 7 months status post robotic right colectomy for stage I colon cancer and a known sigmoid stricture in the hospital with decreased bowel function, abdominal distention, and mild abdominal discomfort. I am concerned about the
possibility of large bowel obstruction due to sigmoid stricture. Imaging inconclusive due to lack of contrast progression however does show some small and large bowel distention. As an aside the bladder is quite distended and there is bilateral
hydronephrosis and an elevated creatinine. This may be related to his BPH history. Regardless recommend upfront placement of Hutchinson to decompress the bladder to see if this helps. Recommend NG tube placement to decompress his GI tract. Keep
n.p.o. and hydrate with IV fluids. Will repeat CT early a.m. without contrast to look for oral contrast progression. If this is a large bowel obstruction, the lack of the ileocecal valve makes it unlikely that he will perforate overnight. I
communicated with Dr. Pino Aaron of GI to put the patient on his radar as options with large bowel obstruction depending on CT results tomorrow may include colonic stent placement versus surgical intervention with likely colostomy. The patient is
aware of all the above as well.
[2024-09-02 19:13] VITALS: BP 126/81
--- NOTE | 2024-09-02 19:55 | W.PN.UPDATE ---
Update Note
Progress Note Update
Patient seen in conjunction with [facility]. I concur with the history and physical as well as the assessment and plan.
This is a 72-year-old with past medical history significant for colon cancer status post colectomy 5 months ago presenting to the emergency department with approximately 1 week of increasing abdominal distention, constipation and urinary retention.
Patient reported that he just arrived from a trip 7 days ago and was having difficulty urinating. At that time he visited his physician and had a urinalysis which had some blood in it was thought to have a urinary tract infection. He was
apparently started on ciprofloxacin at that time. Since then the patient has reported with no stool output. He states he passes gas only occasionally. He has had increasing abdominal bloating and constipation. He is intolerant of p.o. over the
last significant oral intake about 3 days ago. He states that his urine output is limited. Reported vomiting once last night which was subsequent to large water intake to help constipation. He denies any bilious emesis. He denies any bloody
emesis. Patient denies having any fevers or chills.
In the emergency department he was afebrile, blood pressure was 140/70 with a pulse of 65 and was satting 99% on room air. CBC was unremarkable. Electrolytes BUN/creatinine were notable for a creatinine of 1.6 which is up from his baseline of 1.0.
A CT of the abdomen pelvis shows a distended bladder, dilated loops of small bowel with narrowing at the sigmoid colon without any specific transition point.
1. SBO - h/o colectomy possibly related to prior surgery, stricture or bladder compression from severe urinary retention.
- admit to med / surg
- NPO for now, IV fluids with D5 LR
- pain control and antiemetics
- NG tube per surgery
- urinary decompression with sosa
- repeat CT scan in am
- surgery aware and consulted
2. Urinary retention - retention with YEIMY. 1.5 L retention per sosa placement.
- IV fluids for now
- continue sosa
- continue tamsulosin
- check u/a and urine culture
- complete course of cipro iv
- urology consult
DVT PPX - heparin sq
Code status - Full Code
[2024-09-02 20:00] VITALS: BP 150/69
--- NOTE | 2024-09-02 20:07 | HPS.HSE ---
Family Physician
-
Family Physician: Eulalio Noonan
Chief Complaint
-
Constipation x 1 week, unable to urinate x 1 week
History of Present Illness
73-year-old male complaining of difficulty urinating this past week with lower abdominal discomfort. Patient states they went away on vacation for a week and he realized a couple days into his trip he forgot his Flomax. He was having progressive
difficulty urinating. Upon arrival home his presumed that he had a UTI, she was not aware he forgot his Flomax.. He was put on Cipro empirically by his PCP. Per the patient there was blood in his urine that led the PCP to put him on the
antibiotic at the same time he noticed that he had not had a bowel movement for approximately 1 week had some abdominal discomfort and distention leading to 1 bout of vomiting last night. He was seen by Dr. Romero in the office yesterday noted to
have elevated bun of 40 and creatinine 1.6. He had a CT of the abdomen pelvis with IV and oral contrast in the ER today showing moderate small bowel distention without transition point normal-appearing patent ileal transverse colon anastomosis.
The bladder is quite distended is pushing on the sigmoid as well as causing bilateral hydronephrosis. He had Hutchinson catheter inserted.
He was diagnosed with stage I colon cancer 7 months ago on 01/22/2024. He had a robotic right colectomy completed. He had undergone a colonoscopy by Dr. Olivares but was unable to get through the sigmoid with concern for sigmoid stenosis. Colonoscopy
was followed by Dr. Garcia who was able to maneuver through the sigmoid successfully get into the tumor in the proximal transverse colon. He underwent a robotic right inguinal hernia repair with mesh by Dr. Reno Katz recently on 05/20/2024. His
other past medical history includes HLD, BPH, elevated PSA, Lyme's disease, TIA, smoker, daily alcohol use,stage I colon cancer 7 months ago on 01/22/2024. He had a robotic right colectomy completed.
Medical History
Past Medical History
Past Medical History: Reports Other
Additional Past Medical History:
HLD
BPH, elevated PSA
Lyme's disease
TIA,
smoker,-pipe daily
daily alcohol use 1 vodka chocolate martini
stage I colon cancer 7 months ago on 01/22/2024. He had a robotic right colectomy completed.
Past Surgical History: Reports Other
Additional Past Surgical History:
stage I colon cancer 7 months ago on 01/22/2024. He had a robotic right colectomy completed.
Social History
Tobacco: Smoker (Pipe daily)
Alcohol: Daily (Chocolate vodka martini)
Drug: None
Personal:
Living: With Family ()
Employment: Retired
Family History
Family History: Not pertinent
Allergies / Home Medications
Allergies reflects when Allergies were last updated in [facility].
Home Medications with original date entered in [facility]
Allergy/Medication List:
Allergies
Allergy/AdvReac Type Severity Reaction Status Date / Time
doxycycline Allergy Unknown Verified 09/02/24 14:27
Home Medications
tamsulosin 0.4 mg capsule 0.4 mg PO QPM Urinary Issue 05/06/23
aspirin 81 mg chewable tablet 81 mg PO DAILY #30 tabs 05/07/23
rosuvastatin 10 mg tablet 10 mg PO QPM #30 tabs 05/07/23
Nf Cbg Cbd Hemp Oil 50 ml PO DAILYPRN PRN mild Pain 12/24/23
multivitamin 1 tab PO DAILY Supplement 12/24/23
coQ10 (ubiquinol) 100 mg capsule 100 mg PO DAILY 05/17/24
turmeric root extract 500 mg capsule 1,000 mg PO DAILY 05/17/24
acetaminophen 325 mg tablet 650 mg (2 x 325 mg) PO Q6HPRN PRN mild pain #14 tabs 05/20/24
ciprofloxacin HCl 500 mg tablet 500 mg PO BID 09/02/24
docusate sodium 100 mg capsule (Colace) 100 mg PO BIDPRN PRN constipation 09/02/24
polyethylene glycol 3350 17 gram oral powder packet (Miralax) 17 g PO DAILYPRN PRN constipation 09/02/24
Review of Systems
-
History Source: Patient and Family ( at bedside)
A 12 point ROS was completed and negative except as noted: Yes
Constitutional: Denies Fever, Fatigue or Chills
EENT: Reports Other (NG tube draining brown 500 cc close look good); Denies Sore Throat or Runny Nose
Respiratory: Denies Cough or Trouble Breathing
Cardiac: Denies Chest Pain, Diaphoresis, Palpitations or Syncope
Abdomen/GI: Reports Nausea and Constipated (X 1 week); Denies Abdominal Pain, Vomiting, Diarrhea, Bloody Stools or Black Stools
: Reports Difficulty Voiding (X 1 week) and Hutchinson (Yellow in color)
Musculoskeletal: Denies Joint Pain or Edema
Skin: Denies Itching or Rash
Neurological: Denies Dizzy, Headache or Weakness
Endocrine: Reports No Symptoms
Hematologic/Lymphatic: Reports No Symptoms
Psych: Reports Calm
Physical Exam
Vital Signs
Vital Signs
Temp Pulse Resp BP Pulse Ox
97.6 F 65 16 141/71 99
09/02/24 14:20 09/02/24 14:20 09/02/24 14:20 09/02/24 14:20 09/02/24 14:20
Physical Exam
General: Comfortable and Conversant; No Pain or Fever
HEENT: NormoCephalic
Respiratory: Clear; No Wheezes, Rales or Rhonchi
Cardiac: S1/S2 and Regular Rhythm; No Murmur, Rub, Gallop or Peripheral Edema
Breast: Deferred by me
GI: Soft, Non Tender, Non Distended, Normal Bowel Sounds and No Hepatosplenomegaly
Rectal: Deferred by Provider
Genito-urinary: Hutchinson (Draining yellow in color initially drained 1.5 L)
Musculoskeletal: No Clubbing, No Cyanosis and No Edema
Skin: Warm and Dry; No Rash or Jaundice
Neuro: AO x 3, No Motor Deficits, Nonfocal/grossly intact, Cranial Nerves Intact and No Sensory Deficits; No Slurred Speech, Facial Droop, Tremors or Sedated
Psych: Calm
Laboratory Results
-
09/02/24 14:31
09/02/24 14:
Laboratory Results
Total Bilirubin 0.9 mg/dl (0.2-1.3) 09/02/24 14:
AST 28 U/L (17-59) 09/02/24 14:
ALT 22 U/L (0-50) 09/02/24 14:
Alkaline Phosphatase 71 U/L (38-126) 09/02/24 14:
Lipase 46 U/L (23-300) 09/02/24 14:
Impression/Plan
-
Impression/plan:
Admit to MedSurg
#Acute distended bladder/bilateral hydronephrosis unclear etiology possibly secondary to bowel obstruction causing secondary obstruction or vice versa
#YEIMY 2/2 urinary retention/moderate bilateral ureteral pelvicalyceal dilation/versus narrowing of sigmoid colon between bladder left iliac artery
Creat 1.6 baseline appears 1.1
#BPH Hx/elevated PSA-follows with Dr. Lipscomb
Patient had 4 doses of ciprofloxacin 500 mg he started on Friday08/31/2024
-Insert Hutchinson catheter-initially drained 1.5 L
- resume flomax
-Monitor urine output
-Check UA/ ACCOUNTS PAYABLE ADMINISTRATOR
-Consult urology
#Abdominal pain with concern of large bowel obstruction due to sigmoid stricture
-N.p.o.
-Place NG tube to decompress GI tract-drained initial 500 cc dark brown liquid
-IV fluids
-Will check CT abdomen pelvis tomorrow am
Consult Dr. Pino ALEX was made aware of Dr. Romero patient may require colonic stent placement versus surgical intervention with likely colostomy
# HLD
-Continue Crestor 10 mg every afternoon
#Daily alcohol use
Drinks 1 vodka chocolate martini daily
#Active smoker
Smokes a pipe over 50 years
-Cessation advised
#TIA hx
Lyme's disease hx
DVT prophylaxis
SCDs
Full code
[2024-09-02 20:42] LABS: Urine Albumin 1+ (Neg - Trace); Urine Bilirubin Negative (Negative); Urine Character Clear (Clear); Urine Color Yellow; Urine Glucose Negative (Negative); Urine Ketone 1+ (Negative); Urine Leukocyte 1+ (Negative); Urine Nitrite Negative (Negative); Urine Occult Blood 1+ (Negative); Urine Specific Gravity 1.015 (<1.030); Urine Urobilinogen Negative (Neg - 1+)
[2024-09-02 20:58] LABS: Urine Red Blood Cell 16-20 /HPF (0-2); Urine Squamous Cell 0-2 /LPF (Few)
[2024-09-02 20:59] LABS: Urine Bacteria Moderate (Negative); Urine White Cell 21-25 /HPF (0-5)
[2024-09-02 22:02] VITALS: BP 151/80
[2024-09-02 23:00] VITALS: BP 122/60
[2024-09-03 00:15] VITALS: BP 129/70; BMI 24.3
[2024-09-03] MEDS: NSS 1000 IV ×2 (00:49→23:05)
[2024-09-03 06:00] VITALS: BMI 24.3
[2024-09-03 07:19] VITALS: BP 125/78
--- NOTE | 2024-09-03 08:03 | W.PN.HOSP.TC ---
Addendum entered and electronically signed by Hernandez Khalil MD 09/03/24 14:16:
Bowel obstruction unclear if large or small bowel.
-Imaging studies without transition point
-Repeat abdominal x-rays in the a.m.
-Continue NGT
-Colorectal surgery may take to the OR on September 06
-Convert all PO meds to IV
Acute kidney injury secondary to postobstructive uropathy complicated by bowel obstruction
-Hutchinson placed
-Urology following
-Monitor urinary output
-Avoid nephrotoxins and hypotension
Hydronephrosis�bilateral
-Expect to improve with bladder decompression with Hutchinson being placed
Colon cancer s/p robotic right colectomy 7 months ago
BPH hold flomax until able to tolerate p.o.
Hyperlipidemia hold Crestor until able to tolerate p.o.
History of TIA hold aspirin until able to tolerate p.o.
Daily alcohol use, 1 martini daily, provide IV thiamine folate
-Without evidnece of withdrawl
Original Note:
Today's Communication/Plan
-
pending urology and surgery consult
continue IVF
continue IV Cipro
Continue NPO
continue NG tube
Assessment / Plan
Assessment / Plan
#Urinary retention/bilateral hydronephrosis of unclear etiology secondary to bowel obstruction causing secondary obstruction or vice versa
#YEIMY 2/2 urinary retention/moderate bilateral ureteral pelvicalyceal dilation/versus narrowing of sigmoid colon between bladder left iliac artery
Creatinine 1.6, baseline 1.1
Patient had 4 doses of ciprofloxacin 500 mg starting 08/31, complete course IV because currently n.p.o.
Hutchinson catheter inserted and drained 1.5 L
Resume Flomax once able to tolerate oral
Monitor urine output
UA culture pending
Urology consult pending
#Abdominal pain secondary to bowel obstruction
secondary to sigmoid stricture
N.p.o.
NG tube decompression, initially drained 500 cc dark brown liquid
Continue IV fluids, analgesics and antiemetics
CT abdomen pelvis pending today
Dr. Aaron and Dr. Romero consulted, pending final recommendations
#Hyperlipidemia
Continue Crestor once able to tolerate oral
#Daily alcohol use
Drinks 1 martini a day
#Active smoker
Smokes pipe daily for 50 years
Cessation advised
#History of TIA
Continue aspirin once able to tolerate oral
#History of Lyme disease
#DVT prophylaxis�heparin
Full code
Anticipated Discharge: > 48 hours
Subjective/Interval History
-
Date of Service: September 03, 2024
73-year-old male smoker with past medical history of hyperlipidemia, BPH, Lyme's disease, TIA, with daily alcohol use and stage I colon cancer presented to [facility] with difficulty urinating and having a bowel movement. Patient states he
feels significantly better than last night. He reports no acute complaints. He is waiting for final recommendations from colorectal surgery and urology. Currently NPO.
Objective Data
-
Labs:
Laboratory Results
09/03/24
07:43
WBC Pending
Hgb Pending
Hct Pending
Plt Count Pending
Sodium Pending
Potassium Pending
Chloride Pending
Carbon Dioxide Pending
BUN Pending
Creatinine Pending
Glucose Pending
Calcium Pending
Total Bilirubin Pending
AST Pending
ALT Pending
Alkaline Phosphatase Pending
Vital Signs:
Vital Signs
Temp Pulse Resp BP Pulse Ox
99.4 F 76 18 125/78 97
09/03/24 07:19 09/03/24 07:19 09/03/24 07:19 09/03/24 07:19 09/03/24 07:19
I&O
09/02/24 09/03/2409/04/25
06:59 06:59 06:59
Intake Total 420 / 420
Output Total 300 / 300
Balance 420 / 420 -300 / -300
Review of Systems
-
History Source: Patient
All other systems: Reviewed and negative
Constitutional: Reports No Symptoms
EENT: Reports No Symptoms Reported
Respiratory: Reports No Symptoms
Cardiac: Reports No Symptoms
Genitourinary: Reports Difficulty Voiding
Physical Exam
-
General: Well Developed, Well Nourished, No Apparent Distress, Comfortable and Conversant
HEENT: Normocephalic and Atraumatic
Respiratory: Clear to Auscultation
Cardiac: Regular Rhythm and S1/S2
GI: Soft, Tender and Distended
Musculoskeletal: No Clubbing, No Cyanosis and No Edema
Skin: Warm and Dry
Neuro: AO x 3
Psych: Calm
Data Reviewed
-
CT Scan: Report Reviewed by me
Labs: Labs Reviewed by me and Discussed with Physician
Old Records: Reviewed
[2024-09-03 08:08] LABS: % Basophils 0.6 % (0-2); % Eosinophils 0.3 % (0-6); % Immature Granulocytes 0.7 % (0-0.5); % Lymphocytes 19.2 % (20.5-51.1); % Monocytes 11.3 % (1.7-9.3); % Neutrophils 67.9 % (42.2-75.2); Absolute Immature Granulocytes 0.1 10^3/uL (0-0.05); Absolute Lymphocytes 1.4 10^3/uL (1.2-3.4); Absolute Monocytes 0.8 10^3/uL (0.1-0.6); Absolute Neutrophils 4.9 10^3/uL (1.4-6.5); Hematocrit 37.7 % (39.0-52.0); Hemoglobin 12.8 g/dL (13.0-18.0); Mean Corpuscular Hgb 30.8 pg (27.0-31.0); Mean Corpuscular Volume 90.6 fL (80.0-94.0); Mean Platelet Volume 9.4 fL (7.4-10.4); Nucleated Red Blood Cells % 0 % (-); Platelet Count 335 10^3/uL (130-400); Red Blood Cell Count 4.16 10^6/uL (4.70-6.10); Red Cell Dist. Width 14.6 % (11.5-14.5); White Blood Cell Count 7.2 10^3/uL (4.8-10.8)
--- NOTE | 2024-09-03 08:09 | CONS.URO ---
Consultation
-
Date/Time Consultation Performed: 09/03/24 0750
Performing Provider: Bird
Reason for Consultation: AUR
Medical History
History of Present Illness
Pt with colon ca s/p Robotic Right Colectomy ~ 7 months ago developed irritative and obstructive urinary symptoms for which he eventually was seen in the ED at which time CT scan demonstrated bowel obstruction and a distended urinary bladder, for
which a Hutchinson was placed, draining ~ 1.5 L of urine.
Pt reports no antecedent hx.
Past Medical History
Past Medical History: Hypercholesterolemia and Other ( Lyme's disease TIA, smoker,-pipe daily daily alcohol, stage I colon cancer)
Past Surgical History: Bowel Resection
Allergies/Home Medications
Allergies
Allergy/AdvReac Type Severity Reaction Status Date / Time
doxycycline Allergy 'felt a Verified 09/02/24 21:28
little
wacky'
Home Medications
�Medication �Instructions �Recorded �Confirmed �Type
tamsulosin 0.4 mg capsule 0.4 mg PO QPM Urinary Issue 05/06/23 09/02/24 History
aspirin 81 mg chewable tablet 81 mg PO DAILY #30 tabs 05/07/23 09/02/24 Rx
rosuvastatin 10 mg tablet 10 mg PO QPM #30 tabs 05/07/23 09/02/24 Rx
Nf Cbg Cbd Hemp Oil 50 ml PO DAILYPRN PRN mild Pain 12/24/23 09/02/24 History
multivitamin 1 tab PO DAILY Supplement 12/24/23 09/02/24 History
coQ10 (ubiquinol) 100 mg capsule 100 mg PO DAILY 05/17/24 09/02/24 History
turmeric root extract 500 mg 1,000 mg PO DAILY 05/17/24 09/02/24 History
capsule
acetaminophen 325 mg tablet 650 mg (2 x 325 mg) PO Q6HPRN PRN 05/20/24 09/02/24 Rx
mild pain #14 tabs
ciprofloxacin HCl 500 mg tablet 500 mg PO BID 09/02/24 09/02/24 History
docusate sodium 100 mg capsule 100 mg PO BIDPRN PRN constipation 09/02/24 09/02/24 History
(Colace)
polyethylene glycol 3350 17 gram 17 g PO DAILYPRN PRN constipation 09/02/24 09/02/24 History
oral powder packet (Miralax)
Physical Exam
Vital Signs
Vital Signs
Temp Pulse Resp BP Pulse Ox
99.4 F 76 18 125/78 97
09/03/24 07:19 09/03/24 07:19 09/03/24 07:19 09/03/24 07:19 09/03/24 07:19
Lab / Testing Results
Laboratory Results
09/03/24 07:43
Physical Exam
adult male in bed
NGT in place
General: No Apparent Distress
Genito-urinary: Hutchinson Catheter (draining lew urine)
Assessment / Plan
-
Urinary Retention: baseline prostatomegaly compounded by bowel obstruction with bilateral Hydroureteronephrosis and Obstructive Nephropathy and Azotemia
Rec: Hutchinson until bowel obstruction is resolved; Tamsulosin
Data Reviewed
-
CT Scan: Image personally visualized and interpreted
Lab Data: Labs Reviewed
Old Records: Reviewed
[2024-09-03 08:37] LABS: ALT (SGPT) 19 U/L (0-50); AST (SGOT) 24 U/L (17-59); Albumin 3.5 g/dl (3.5-5.0); Alkaline Phosphatase 75 U/L (38-126); Blood Urea Nitrogen 32 mg/dl (9-20); Calcium 8.9 mg/dl (8.4-10.2); Carbon Dioxide 22 mmol/L (22-30); Chloride 100 mmol/L (98-107); Estimated Creatinine Clearance 42 ml/min; Glucose 79 mg/dl (70-99); Potassium 4.5 mmol/L (3.5-5.1); Sodium 136 mmol/L (135-145); Total Bilirubin 0.9 mg/dl (0.2-1.3); eGFR 53.07
[2024-09-03] MEDS: FLOMAX PO (10:26)
--- NOTE | 2024-09-03 11:55 | W.PN.CRS1 ---
Today's Communication / Plan
-
maintain ngt
possible OR on Friday
xrays tomorrow AM
Assessment/Plan
-
73-year-old male about 7 months status post robotic right colectomy for stage I colon cancer and a known sigmoid stricture in the hospital with decreased bowel function, abdominal distention, and mild abdominal discomfort. NGT placed.
Imaging reviewed with radiology this AM. CT showed 'Persistent diffuse dilatation of small bowel with air-fluid levels. No evidence for passage of contrast material from the small bowel into the colon. Short segment of narrowing in the distal ileum,
distal to which there is no appreciable passage of enteric contrast material. This could conceivably represent the site of obstruction, although this was not clearly present on the CT abdomen/pelvis from 09/02/2024. Moderate stool throughout the
colon and rectum, without evidence for wall thickening or mass within the limitations of the lack of contrast material within the colon.'
WBC 7.2, hgb 12.8, vitals normal
-Unclear whether this is a LBO vs SBO. Discussed at length with radiologist this morning. Given there is no passage of contrast in the distal ileum, possible sbo present
-Will order abdominal xrays tomorrow to see if contrast has passed
-Possible ex lap on Friday with Dr. Romero
-Maintain NGT for now
-Okay for lovenox/heparin sq for dvt prophylaxis from our perspective
-Pre-op Friday night
Subjective Data
Subjective Data
Date of Service: September 03, 2024
Patient states he had a bowel movement earlier this morning. He feels much less distended today. He denies any abdominal pain today which is a big improvement.
Objective Data
-
Vital Signs
Temp Pulse Resp BP Pulse Ox
99.4 F 76 18 125/78 97
09/03/24 07:19 09/03/24 07:19 09/03/24 07:19 09/03/24 07:19 09/03/24 07:19
Intake & Output
09/02/24 09/03/24 09/04/24
06:59 06:59 06:59
Intake Total 420 / 420
Output Total 300 / 300
Balance 420 / 420 -300 / -300
Intake:
IV fluids (Total) 420 / 420
Output:
Gastrointestinal tube output ( 300 / 300
Total)
[place] Sump 300 / 300
Lab Results
09/03/24 07:43
09/03/24 07:43
Physical Exam
-
General: No Acute Distress and AOx3
Abdomen: Soft, Distended (Mild) and Non Tender
Skin: Warm and Dry
Data Reviewed
-
CT Scan: Image Reviewed, Report Reviewed and Discussed with Radiology
[2024-09-03] MEDS: CIPRO 400 MG 200 IV ×2 (12:01→23:05)
--- NOTE | 2024-09-03 13:24 | CM ---
estate manager reviewed patient's chart and met with patient and patient with NGT, possible OR on Friday. Patient lives with spouse in a 2 story home patient is independent with adl's and ambulation, no dme, patient drives.
PCP: Dr. Noonan
Pharmacy: [facility] on [facility].
Plan; Home when stable.
[2024-09-03 15:00] VITALS: BP 133/68
[2024-09-03] MEDS: FOLVITE 50.2 MG IV (15:35)
[2024-09-03 23:36] VITALS: BP 119/68
[2024-09-04] MEDS: HEPARIN 5000 UNITS SC ×4 (00:42→23:15)
[2024-09-04 06:00] VITALS: BMI 23.6
[2024-09-04 07:00] VITALS: BP 136/70
[2024-09-04] MEDS: THIAMINE INJECTION 100 MG IV (08:40)
[2024-09-04 08:42] LABS: % Basophils 0.4 % (0-2); % Eosinophils 0.4 % (0-6); % Immature Granulocytes 0.5 % (0-0.5); % Lymphocytes 20.7 % (20.5-51.1); % Monocytes 11.6 % (1.7-9.3); % Neutrophils 66.4 % (42.2-75.2); Absolute Lymphocytes 1.6 10^3/uL (1.2-3.4); Absolute Monocytes 0.9 10^3/uL (0.1-0.6); Absolute Neutrophils 5.2 10^3/uL (1.4-6.5); Hematocrit 38.1 % (39.0-52.0); Hemoglobin 12.3 g/dL (13.0-18.0); Mean Corp Hgb Conc. 32.3 g/dL (33.0-37.0); Mean Corpuscular Hgb 30.3 pg (27.0-31.0); Mean Corpuscular Volume 93.8 fL (80.0-94.0); Mean Platelet Volume 9.3 fL (7.4-10.4); Nucleated Red Blood Cells % 0 % (-); Platelet Count 345 10^3/uL (130-400); Red Blood Cell Count 4.06 10^6/uL (4.70-6.10); Red Cell Dist. Width 14.6 % (11.5-14.5); White Blood Cell Count 7.8 10^3/uL (4.8-10.8)
[2024-09-04 09:12] LABS: ALT (SGPT) 20 U/L (0-50); AST (SGOT) 26 U/L (17-59); Albumin 3.3 g/dl (3.5-5.0); Alkaline Phosphatase 70 U/L (38-126); Blood Urea Nitrogen 29 mg/dl (9-20); Calcium 8.4 mg/dl (8.4-10.2); Carbon Dioxide 27 mmol/L (22-30); Chloride 101 mmol/L (98-107); Estimated Creatinine Clearance 49 ml/min; Glucose 76 mg/dl (70-99); Potassium 4.3 mmol/L (3.5-5.1); Sodium 140 mmol/L (135-145); Total Bilirubin 0.9 mg/dl (0.2-1.3); Total Protein 5.7 g/dl (6.3-8.2); eGFR > 60.00
--- NOTE | 2024-09-04 10:05 | W.PN.HOSP.TC ---
Today's Communication/Plan
-
Assessment / Plan
Assessment / Plan
NAD
Scleral Anicteric
MMM
No JVD
CTABL
RRR, S1/S2
NT, Distended, BS+
Warm, Dry
AAOx3
Calm
Bowel obstruction unclear if large or small bowel.
-Imaging studies without transition point
-Repeat abdominal x-rays in the a.m.
-Continue NGT, clamped for 6 hours, follow symptomatology if nausea vomiting resume then will place back on lis to wall
-Colorectal surgery may take to the OR on September 06
Acute kidney injury secondary to postobstructive uropathy complicated by bowel obstruction, returning to baseline as expected once bladder was decompressed
-Hutchinson placed
-Urology following
-Monitor urinary output
-Avoid nephrotoxins and hypotension
Hydronephrosis�bilateral
-Expect to improve with bladder decompression with Hutchinson being placed
Colon cancer s/p robotic right colectomy 7 months ago
BPH hold flomax until able to tolerate p.o.
Hyperlipidemia hold Crestor until able to tolerate p.o.
History of TIA hold aspirin until able to tolerate p.o.
Daily alcohol use, 1 martini daily, provide IV thiamine folate
-Without evidnece of withdrawl
Anticipated Discharge: > 48 hours
Subjective/Interval History
-
Date of Service: September 04, 2024
Seen and examined. No new complaints. No acute overnight events.
Per Mr. Hayes and his that is at bedside
-Colorectal surgery already saw him, clamp NGT for 6 hours
Objective Data
-
Labs:
Laboratory Results
09/04/24
06:56
WBC 7.8
Hgb 12.3 L
Hct 38.1 L
Plt Count 345
Sodium 140
Potassium 4.3
Chloride 101
Carbon Dioxide 27
BUN 29 H
Creatinine 1.2
Glucose 76
Calcium 8.4
Total Bilirubin 0.9
AST 26
ALT 20
Alkaline Phosphatase 70
Vital Signs:
Vital Signs
Temp Pulse Resp BP Pulse Ox
98.4 F 65 19 136/70 98
09/04/24 07:00 09/04/24 07:00 09/04/24 07:00 09/04/24 07:00 09/04/24 07:00
I&O
09/03/24 09/04/24 09/05/24
06:59 06:59 06:59
Intake Total 420 / 420
Output Total 2900 / 2900
Balance 420 / 420 -2900 / -2900
[2024-09-04] MEDS: FLOMAX PO (10:34)
[2024-09-04] MEDS: PROTONIX IV 40 MG IV (10:39)
[2024-09-04] MEDS: NSS (PRESERVATIVE FREE) 10 ML IV (10:40)
--- NOTE | 2024-09-04 11:06 | W.PN.URO.CBU ---
Today's Communication / Plan
-
Rec: Hutchinson until bowel obstruction is resolved; as surgery might be pursued on 09/06, keep Hutchinson; Tamsulosin
Assessment / Plan
-
Urinary Retention: baseline prostatomegaly compounded by bowel obstruction with bilateral Hydroureteronephrosis and Obstructive Nephropathy and Azotemia
Diagnosis
-
Date of Service: September 04, 2024
-
Patient Diagnosis:
Urinary Retention: baseline prostatomegaly compounded by bowel obstruction with bilateral Hydroureteronephrosis and Obstructive Nephropathy and Azotemia
Objective
-
Vital Signs
Temp Pulse Resp BP Pulse Ox
98.4 F 65 19 136/70 98
09/04/24 07:00 09/04/24 07:00 09/04/24 07:00 09/04/24 07:00 09/04/24 07:00
Intake and Output
09/03/24 09/04/24 09/05/24
06:59 06:59 06:59
Intake Total 420 / 420
Output Total 2900 / 2900
Balance 420 / 420 -2900 / -2900
Intake:
IV fluids (Total) 420 / 420
Output:
Gastrointestinal tube output ( 1550 / 1550
Total)
[place] Sump 1550 / 1550
Urine, Hutchinson 1350 / 1350
Other:
Number of unmeasured liquid
stools
Rectum 2
Laboratory Results
09/04/24 06:56
09/04/24 06:56
KUB: improved bowel obstruction pattern
[2024-09-04] MEDS: CIPRO 400 MG 200 IV ×2 (12:38→23:15)
--- NOTE | 2024-09-04 13:23 | W.PN.CRS1 ---
Addendum entered and electronically signed by Paco Tsai MD 09/04/24 19:48:
I saw and examined the patient.
The REGIONAL MAINTENANCE MANAGER's note was reviewed and I agree with the note.
NGT removed, continue n.p.o. with sips and will reexamine in the a.m. prior to advancing diet
Original Note:
Today's Communication / Plan
-
NGT clamp trial
Assessment/Plan
-
73-year-old male about 7 months status post robotic right colectomy for stage I colon cancer and a known sigmoid stricture in the hospital with decreased bowel function, abdominal distention, and mild abdominal discomfort
Ct unclear whether this is a LBO vs SBO. Given there is no passage of contrast in the distal ileum, possible sbo present
XR with noted improvement in distention s/p ngt decompression
Labs stable
AFVSS
Evidence of bowel recovery with passage of flatus/stool.
Some blood in NGT suspect secondary to local irriation from tube
Plan:
-NGT clamp trial
-Start Protonix IV
-Okay for lovenox/heparin sq for dvt prophylaxis from our perspective
Thus far improving but will follow tentatively for possible ex lap on Friday with Dr. Romero if not continuing to progress
Subjective Data
Subjective Data
Date of Service: September 04, 2024
Patient seen and examined at bedside with Dr Tsai. Denies n/v. Passing flatus and stools. Denies pain.
Objective Data
-
Vital Signs
Temp Pulse Resp BP Pulse Ox
98.4 F 65 19 136/70 98
09/04/24 07:00 09/04/24 07:00 09/04/24 07:00 09/04/24 07:00 09/04/24 07:00
Intake & Output
09/03/24 09/04/24 09/05/24
06:59 06:59 06:59
Intake Total 420 / 420
Output Total 2900 / 2900
Balance 420 / 420 -2900 / -2900
Intake:
IV fluids (Total) 420 / 420
Output:
Gastrointestinal tube output ( 1550 / 1550
Total)
[place] Sump 1550 / 1550
Urine, Hutchinson 1350 / 1350
Other:
Number of unmeasured liquid
stools
Rectum 2
Lab Results
09/04/24 06:56
09/04/24 06:56
Physical Exam
-
General: No Acute Distress and AOx3
Abdomen: Soft, Distended (Mild), Non Tender and Other (NGT with coffee ground material)
Skin: Warm and Dry
[2024-09-04 15:00] VITALS: BP 130/66
[2024-09-04] MEDS: FOLVITE 50.2 MG IV (15:54)
[2024-09-04] MEDS: NSS 1000 IV (23:15)
[2024-09-04 23:30] VITALS: BP 132/71
[2024-09-05 06:00] VITALS: BMI 23.5
[2024-09-05 07:00] VITALS: BP 128/70
[2024-09-05 08:13] LABS: % Basophils 0.6 % (0-2); % Eosinophils 2.2 % (0-6); % Lymphocytes 19.4 % (20.5-51.1); % Monocytes 8.8 % (1.7-9.3); Absolute Basophils 0.1 10^3/uL (0-0.2); Absolute Eosinophils 0.2 10^3/uL (0-0.7); Absolute Immature Granulocytes 0.1 10^3/uL (0-0.05); Absolute Lymphocytes 1.6 10^3/uL (1.2-3.4); Absolute Monocytes 0.7 10^3/uL (0.1-0.6); Absolute Neutrophils 5.6 10^3/uL (1.4-6.5); Hematocrit 34.8 % (39.0-52.0); Hemoglobin 11.6 g/dL (13.0-18.0); Mean Corp Hgb Conc. 33.3 g/dL (33.0-37.0); Mean Corpuscular Hgb 30.9 pg (27.0-31.0); Mean Corpuscular Volume 92.6 fL (80.0-94.0); Mean Platelet Volume 9.2 fL (7.4-10.4); Nucleated Red Blood Cells % 0 % (-); Platelet Count 320 10^3/uL (130-400); Red Blood Cell Count 3.76 10^6/uL (4.70-6.10); Red Cell Dist. Width 14.5 % (11.5-14.5); White Blood Cell Count 8.2 10^3/uL (4.8-10.8)
[2024-09-05 08:42] LABS: ALT (SGPT) 21 U/L (0-50); AST (SGOT) 27 U/L (17-59); Albumin 3.3 g/dl (3.5-5.0); Alkaline Phosphatase 64 U/L (38-126); Blood Urea Nitrogen 21 mg/dl (9-20); Calcium 8.3 mg/dl (8.4-10.2); Carbon Dioxide 24 mmol/L (22-30); Chloride 104 mmol/L (98-107); Estimated Creatinine Clearance 59 ml/min; Glucose 83 mg/dl (70-99); Potassium 4.3 mmol/L (3.5-5.1); Sodium 140 mmol/L (135-145); Total Bilirubin 0.8 mg/dl (0.2-1.3); Total Protein 6.1 g/dl (6.3-8.2); eGFR > 60.00
[2024-09-05] MEDS: FLOMAX PO ×2 (09:59→10:16)
[2024-09-05] MEDS: THIAMINE INJECTION 100 MG IV (10:01)
[2024-09-05] MEDS: NSS (PRESERVATIVE FREE) 10 ML IV (10:06)
[2024-09-05] MEDS: PROTONIX IV 40 MG IV (10:06)
[2024-09-05] MEDS: HEPARIN 5000 UNITS SC ×3 (10:07→23:55)
--- NOTE | 2024-09-05 10:34 | W.PN.HOSP.TC ---
Today's Communication/Plan
-
Follow-up colorectal surgery
Once cleared for diet would start clear liquid diet
Would resume medications once cleared for diet
Awaiting to hear from colorectal surgery if he has to go to the OR on Friday/September 06
Follow-up with urology for ToV recommendation
Assessment / Plan
Assessment / Plan
NAD
Scleral Anicteric
MMM
No JVD
CTABL
RRR, S1/S2
NT, Distended, BS+
Warm, Dry
AAOx3
Calm
Bowel obstruction unclear if large or small bowel.
-Imaging studies without transition point
-NGT removed per colorectal surgery
-If cleared for diet per colorectal surgery, would start with clear liquid diet advance as tolerated when able to do
-Otherwise may require OR on September 06 with colorectal surgery
Acute kidney injury secondary to postobstructive uropathy complicated by bowel obstruction, returning to baseline as expected once bladder was decompressed
-Hutchinson placed
-Urology following, ToV recs per urology when applicable
-Monitor urinary output
-Avoid nephrotoxins and hypotension
-Resume Flomax once able to tolerate diet
Hydronephrosis�bilateral
-Expect to improve with bladder decompression with Hutchinson being placed
-Resume from once able to tolerate
Colon cancer s/p robotic right colectomy 7 months ago
BPH
-Once cleared for diet can resume Flomax
Hyperlipidemia hold Crestor until able to tolerate p.o.
History of TIA hold aspirin until able to tolerate p.o.
Daily alcohol use, 1 martini daily, provide IV thiamine folate
-Without evidnece of withdrawl
Pseudo hypocalcemia corrects with albumin
Anticipated Discharge: > 48 hours
Subjective/Interval History
-
Date of Service: September 05, 2024
Seen and examined. No new complaints. No acute overnight events.
NGT removed
No further nausea or vomiting
Asking to eat something
Objective Data
-
Labs:
Laboratory Results
09/05/24
07:31
WBC 8.2
Hgb 11.6 L
Hct 34.8 L
Plt Count 320
Sodium 140
Potassium 4.3
Chloride 104
Carbon Dioxide 24
BUN 21 H
Creatinine 1.0
Glucose 83
Calcium 8.3 L
Total Bilirubin 0.8
AST 27
ALT 21
Alkaline Phosphatase 64
Vital Signs:
Vital Signs
Temp Pulse Resp BP Pulse Ox
98.5 F 56 15 128/70 97
09/05/24 07:00 09/05/24 07:00 09/05/24 07:00 09/05/24 07:00 09/05/24 07:00
I&O
09/04/24 09/05/24 09/06/24
06:59 06:59 06:59
Output Total 2900 / 2900 475 / 475
Balance -2900 / -2900 -475 / -475
[2024-09-05] MEDS: CIPRO 400 MG 200 IV ×2 (12:30→23:55)
--- NOTE | 2024-09-05 13:19 | W.PN.CRS1 ---
Addendum entered and electronically signed by Paco Tsai MD 09/05/24 15:29:
I saw and examined the patient.
The HEALTH CARE MARKETING SPECIALIST's note was reviewed and I agree with the note.
Comment:
Past clamp trial and removed. Denies N/V and having flatus and BMs. Soft, minimally distended, nontender. Keep Sosa for today due to questionable UOP overnight. Advance to clears and advance to low residue for dinner if tolerating.
Original Note:
Today's Communication / Plan
-
ADAT
Assessment/Plan
-
73-year-old male about 7 months status post robotic right colectomy for stage I colon cancer and a known sigmoid stricture in the hospital with decreased bowel function, abdominal distention, and mild abdominal discomfort with urinary retention
(sosa placed)
Ct unclear whether this is a LBO vs SBO. Given there is no passage of contrast in the distal ileum, possible sbo present
XR with noted improvement in distention s/p ngt decompression
NGT out on 09/04 and now passing flatus stools
Labs stable
AFVSS
Evidence of bowel recovery with passage of flatus/stool
Plan:
-CLD and advance to LRD for dinner if tolerating
-C/W sosa, anticipate voiding trial tomorrow
-C/w PPI
-Okay for lovenox/heparin sq for dvt prophylaxis from our perspective
Thus far improving, do not anticipate he will need surgery this admission
Subjective Data
Subjective Data
Date of Service: September 05, 2024
Patient seen and examined at bedside with Dr. Tsai, spouse present. Denies n/v. Passing flatus and some loose stools. Denies pain. Notes he is quite hungry.
Objective Data
-
Vital Signs
Temp Pulse Resp BP Pulse Ox
98.5 F 56 15 128/70 97
09/05/24 07:00 09/05/24 07:00 09/05/24 07:00 09/05/24 07:00 09/05/24 07:00
Intake & Output
09/04/24 09/05/24 09/06/24
06:59 06:59 06:59
Output Total 2900 / 2900 475 / 475
Balance -2900 / -2900 -475 / -475
Output:
Gastrointestinal tube output ( 1550 / 1550
Total)
Sharkey Sump 1550 / 1550
Urine, Sosa 1350 / 1350 475 / 475
Other:
Number of unmeasured liquid
stools
Rectum 2
Lab Results
09/05/24 07:31
09/05/24 07:31
Physical Exam
-
General: No Acute Distress and AOx3
Abdomen: Soft, Distended (Mild to upper abdomen) and Non Tender
Skin: Warm and Dry
--- NOTE | 2024-09-05 14:36 | CM ---
Chart reviewed. Care ongoing at this time.
Per chart, pt is no longer needing surgery at this time
CM will cont to follow for d/c planning
Plan: Home; no needs anticipated
[2024-09-05] MEDS: FOLVITE 50.2 MG IV (15:54)
[2024-09-05 15:57] VITALS: BP 113/58
[2024-09-05] MEDS: NSS IV (20:51)
[2024-09-05 23:25] VITALS: BP 120/56
[2024-09-06 05:22] VITALS: BMI 24.0
[2024-09-06 07:27] VITALS: BP 117/68
--- NOTE | 2024-09-06 08:50 | W.PN.URO.CBU ---
Today's Communication / Plan
-
keep Hutchinson to accurately measure urine output, which has been marginal
Assessment / Plan
-
Urinary Retention: baseline prostatomegaly compounded by bowel obstruction with bilateral Hydroureteronephrosis and Obstructive Nephropathy and Azotemia
Diagnosis
-
Date of Service: September 06, 2024
-
Patient Diagnosis:
Urinary Retention: baseline prostatomegaly compounded by bowel obstruction with bilateral Hydroureteronephrosis and Obstructive Nephropathy and Azotemia
Subjective
-
improving GI fxn
Objective
-
Vital Signs
Temp Pulse Resp BP Pulse Ox
98 F 58 18 117/68 99
09/06/24 07:27 09/06/24 07:27 09/06/24 07:27 09/06/24 07:27 09/06/24 07:27
Intake and Output
09/05/24 09/06/24 09/07/24
06:59 06:59 06:59
Intake Total 1919
Output Total 475 / 475 650 / 650
Balance -475 / -475 1270 / 1270
Intake:
Oral fluids 1919
Output:
Urine, Hutchinson 475 / 475 650 / 650
Other:
How many times incontinent 4
MODERATE amount urine
Laboratory Results
09/05/24 07:31
09/05/24 07:31
650 ml per Hutchinson
Physical Exam
-
General - well developed, well nourished, no acute distress
Chest - clear bilaterally
Abdomen - soft, non-tender, positive bowel sounds, no CVAT, no incisional pain or distention
Genitalia - normal
Rectal - normal
Skin - warm & dry with no rash
Neuro - AOx3, no motor deficits
Extremities - no clubbing, no cyanosis, no edema
Incision - clean, dry
Dressing - clean, dry, intact
[2024-09-06] MEDS: FLOMAX 0.8 MG PO (10:52)
--- NOTE | 2024-09-06 10:57 | W.PN.HOSP.TC ---
Today's Communication/Plan
-
Pending urology recommendations
Assessment / Plan
Assessment / Plan
#Bowel obstruction
NGT discontinued per colorectal surgery
Tolerating low residue diet well, restart oral medications
#YEIMY secondary to postobstructive uropathy
Hutchinson placed, draining urine
Urology on board, recommendations appreciated
Resume Flomax today
Avoid nephrotoxins
#Hydronephrosis, bilateral
Expected improvement as decompression of bladder continues with Hutchinson and Flomax
#History of colon cancer, status post robotic colectomy 7 months ago
#BPH
Resume Flomax today
#Hyperlipidemia
Resume Crestor today
#TIA
Resume aspirin today
BPH
#Daily alcohol use
1 martini
No evidence of withdrawal
Full code
Anticipated Discharge: Within 24 hours
Subjective/Interval History
-
Date of Service: September 06, 2024
Patient reports no overnight events. He is tolerating low residue diet well. He has no chest pain, shortness of breath, nausea, vomiting, diarrhea. He states he is passing gas and having bowel movements.
Objective Data
-
Vital Signs:
Vital Signs
Temp Pulse Resp BP Pulse Ox
98 F 58 18 117/68 99
09/06/24 07:27 09/06/24 07:27 09/06/24 07:27 09/06/24 07:27 09/06/24 07:27
I&O
09/05/24 09/06/24 09/07/24
06:59 06:59 06:59
Intake Total 1919 / 1919
Output Total 475 / 475 650 / 650
Balance -475 / -475 1270 / 1270
Review of Systems
-
History Source: Patient
Constitutional: Reports No Symptoms
EENT: Reports No Symptoms Reported
Respiratory: Reports No Symptoms
Cardiac: Reports No Symptoms
Abdomen/GI: Reports No Symptoms
Genitourinary: Reports No Symptoms
Skin: Reports No Symptoms
Neuro: Reports No Symptoms
Physical Exam
-
General: Well Developed, Well Nourished, No Apparent Distress, Comfortable and Conversant
HEENT: Normocephalic and Atraumatic
Respiratory: Clear to Auscultation
Cardiac: Regular Rhythm and S1/S2
GI: Soft, Nontender and Distended (Mild)
Genito-urinary: Hutchinson
Musculoskeletal: No Clubbing, No Cyanosis and No Edema
Skin: Warm and Dry
Neuro: AO x 3
Psych: Calm
Data Reviewed
-
Labs: Labs Reviewed by me and Discussed with Physician
Old Records: Reviewed
[2024-09-06] MEDS: THIAMINE INJECTION 100 MG IV (10:58)
[2024-09-06] MEDS: PROTONIX IV 40 MG IV (10:59)
[2024-09-06] MEDS: NSS (PRESERVATIVE FREE) 10 ML IV (10:59)
[2024-09-06] MEDS: HEPARIN 5000 UNITS SC (10:59)
[2024-09-06] MEDS: CIPRO 400 MG 200 IV (11:00)
--- NOTE | 2024-09-06 11:18 | W.PN.CRS1 ---
Today's Communication / Plan
-
No plans for surgery today
Continue low residue diet
Sosa per urology
Assessment/Plan
-
73-year-old male about 7 months status post robotic right colectomy for stage I colon cancer and a known sigmoid stricture in the hospital with decreased bowel function, abdominal distention, and mild abdominal discomfort with urinary retention
(sosa placed)
Ct unclear whether this is a LBO vs SBO. Given there is no passage of contrast in the distal ileum, possible sbo present
XR with noted improvement in distention s/p ngt decompression
NGT out on 09/04 and now passing flatus stools
Labs stable
AFVSS
Evidence of bowel recovery with passage of flatus/stool
Plan:
-Continue with low residue diet
-Sosa management per urology
-C/w PPI
-On heparin subcu for DVT prophylaxis
-No plans for surgery today
Subjective Data
Subjective Data
Date of Service: September 06, 2024
Patient states he feels 'good'. He has been tolerating diet. He has gas and bowel movements. He feels much improved since when he came into the hospital.
Objective Data
-
Vital Signs
Temp Pulse Resp BP Pulse Ox
98 F 58 18 117/68 99
09/06/24 07:27 09/06/24 07:27 09/06/24 07:27 09/06/24 07:27 09/06/24 07:27
Intake & Output
09/05/24 09/06/24 09/07/24
06:59 06:59 06:59
Intake Total 1919
Output Total 475 / 475 650 / 650
Balance -475 / -475 1270 / 1270
Intake:
Oral fluids 1919
Output:
Urine, Sosa 475 / 475 650 / 650
Other:
How many times incontinent 4
MODERATE amount urine
Lab Results
09/05/24 07:31
09/05/24 07:31
Physical Exam
-
General: No Acute Distress and AOx3
Abdomen: Soft, Non Distended and Non Tender
Skin: Warm and Dry
--- NOTE | 2024-09-06 12:13 | W.PN.UPDATE ---
Addendum entered and electronically signed by Devante Pope MD 09/06/24 13:52:
Total time spent on d/c = 34 min. This included today's physical exam, progress note, review of laboratory and diagnostic data, preparation of discharge documents and prescriptions, and discussions about the pt's hospital course and discharge plan
with the patient and other medical technologist chief involved in the patient's care.
Original Note:
Update Note
Progress Note Update
I saw and evaluated the patient. I reviewed the resident�s note and agree with findings and plan as documented in the resident�s note.
No new complaints.
Gen: NAD, AAOx3.
Eyes: EOMI, PERRLA, no scleral icterus.
Neck: supple.
CV: RRR, +S1/S2, no m/r/g.
Resp: CTAB, no rales, wheezes, or rhonchi.
Abd: +BS, soft, NT, ND
Skin: No rashes.
Neuro: CN 2-12 intact, non-focal.
Psych: Normal mood and affect.
CT A/P 09/02/24: Dilated small bowel loops, extending to the ileal to transverse colon anastomosis with no evidence for transition of caliber within the small bowel. Narrowing of the sigmoid colon as it passes between the distended bladder and the
left internal iliac artery, and this could be the cause of the dilated small bowel loops. Consider bladder decompression with Hutchinson catheter and follow-up CT scan. Mild-mod B/L ureteral and pelvicalyceal dilation, new from examination January 12, 2024,
most likely on the basis of bladder distention. No evidence of free intraperitoneal air. No significant free pelvic fluid.
CT A/P 09/03/24: Persistent diffuse dilatation of small bowel with air-fluid levels. No evidence for passage of contrast material from the small bowel into the colon. Short segment of narrowing in the distal ileum, distal to which there is no
appreciable passage of enteric contrast material. This could conceivably represent the site of obstruction, although this was not clearly present on the CT abdomen/pelvis from 09/02/2024. Moderate stool throughout the colon and rectum, without
evidence for wall thickening or mass within the limitations of the lack of contrast material within the colon. Mild abdominal ascites. Decompressed urinary bladder with a Hutchinson catheter in place. Bilateral hydronephrosis has resolved.
SBO:
-imaging above
-CRS following
-had NGT, now removed per CRS
-advanced to LR diet, tolerating diet and having BMs
YEIMY due to obstructive uropathy (B/L hydronephrosis) complicated by bowel obstruction:
-Hutchinson placed, now YEIMY resolved
-cont Flomax
-Urology following. Will d/w urology timing of voiding trial.
Other problems:
Colon cancer s/p robotic right colectomy 7 months [employer]
Hyperlipidemia: restart statin
h/o TIA: restart ASA/statin
Daily alcohol use: without evidence of withdrawal, cont thiamine/folate
FULL/heparin
Medically cleared for d/c after timing of voiding trial clarified.
--- NOTE | 2024-09-06 12:38 | CM ---
Addendum entered by Mey Michel 09/06/24 13:57:
Plan is to home with [facility] for Hutchinson care.
Original Note:
dock manager reviewed patient's chart and met with patient and plan is to home when stable.
Plan; Home when stable, no needs.
--- NOTE | 2024-09-06 13:27 | W.DCSUMMARY ---
Discharge Summary
Discharge Data
Date of Admission: 09/02/24
Date of Discharge: 09/06/24
Total time spent discharging patient (in min): 35
-
Pending Results: No
Hospital Course
Discharging Physician : Devante Pope MD
Disposition : Home
Primary care physician : Eulalio Noonan
Principal Discharge diagnosis : SBO, YEIMY, urinary retention
Hospital Course : 73-year-old male smoker with past medical history of hyperlipidemia, BPH, Lyme's disease, TIA, with daily alcohol use and stage I colon cancer status post colectomy 7 months ago presented to [facility] with difficulty
urinating and having a bowel movement. Initially, for obstruction, patient was placed on n.p.o. status, given IV fluids and NG tube was placed for decompression. All oral meds were held. NG tube was removed on 09/04 after x-ray noted improvement in
distention. Patient was passing gas and having bowel movements. Diet was progressed. As of 09/06, patient tolerating low residue diet well. IV PPI given as well. For the YEIMY secondary to postobstructive uropathy and hydronephrosis, Hutchinson was
placed, initially draining 1.5 L and continued to slowly trend more urine. Flomax restarted on 09/06 once tolerating oral diet. Patient to be discharged with Hutchinson and to follow-up outpatient with urology for voiding trial. Patient stable for
discharge home.
Important imaging findings :
Abdomen/pelvis CT 09/02:
IMPRESSION: Dilated small bowel loops, extending to the ileal to transverse colon anastomosis with no evidence for transition of caliber within the small bowel.
There is narrowing of the sigmoid colon as it passes between the distended bladder and the left internal iliac artery, and this could be the cause of the dilated small bowel loops. Consider bladder decompression with Hutchinson catheter and follow-up CT
scan.
Mild to moderate bilateral ureteral and pelvicalyceal dilation, new from examination January 12, 2024. This is most likely on the basis of bladder distention.
No evidence of free intraperitoneal air. No significant free pelvic fluid.
Abdomen pelvis CT 09/03:
IMPRESSION:
Persistent diffuse dilatation of small bowel with air-fluid levels. No evidence for passage of contrast material from the small bowel into the colon. Short segment of narrowing in the distal ileum, distal to which there is no appreciable passage of
enteric contrast material. This could conceivably represent the site of obstruction, although this was not clearly present on the CT abdomen/pelvis from 09/02/2024. Moderate stool throughout the colon and rectum, without evidence for wall thickening
or mass within the limitations of the lack of contrast material within the colon.
Mild abdominal ascites.
Decompressed urinary bladder with a Hutchinson catheter in place. Bilateral hydronephrosis has resolved.
Abdomen x-ray 09/04:
IMPRESSION:
1. Overall interval decrease in small bowel distention since 09/03/2024. Persistent air distention of jejunal loops in the left upper quadrant.
2. No radiographic evidence for gastric or colonic distention.
3. Nasogastric tube in place.
4. No radiographic evidence for pneumoperitoneum.
5. Severe multilevel lumbar discogenic degenerative disease and facet joint arthrosis.
Discharge Plan
-
Patient Disposition: Home (Routine Discharge)
Discharge Diagnosis/Procedures: SBO, YEIMY, urinary retention
Condition: Good
Diet: As tolerated and Low Residue
Activity: As tolerated
Driving Restrictions: As prior to admission
Bathing Restrictions: None
Referrals:
Geovanny Romero MD [Active] -
Eulalio Noonan MD [Family Provider] - in less than 1 week
Kulwant Pang MD [Active] - in less than 1 week
Prescriptions:
New
tamsulosin 0.4 mg Capsule
0.8 mg PO DAILY 30 Days Qty: 60 0RF
Continued
multivitamin Tablet
1 tab PO DAILY
Nf Cbg Cbd Hemp Oil
50 ml PO DAILYPRN PRN (Reason: mild Pain)
turmeric root extract 500 mg Capsule
1,000 mg PO DAILY
coQ10 (ubiquinol) 100 mg Capsule
100 mg PO DAILY
acetaminophen 325 mg tablet
650 mg PO Q6HPRN PRN (Reason: mild pain) Qty: 14 0RF
polyethylene glycol 3350 [Miralax] 17 gram Powder In Packet
17 g PO DAILYPRN PRN (Reason: constipation)
ciprofloxacin HCl 500 mg Tablet
500 mg PO BID
Patient Comments:
patien to take for 14 days starting 08/31/24
docusate sodium [Colace] 100 mg Capsule
100 mg PO BIDPRN PRN (Reason: constipation)
aspirin 81 mg tablet,chewable
81 mg PO DAILY
rosuvastatin 10 mg tablet
10 mg PO QPM
Discontinued
tamsulosin 0.4 mg Capsule
0.4 mg PO QPM
Discharge Orders:
Discharge Patient (As Directed); Ordered 09/06/24
Ordered By: Joen Roy
Discharge Date and Time
Print Language: NORWEGIAN
--- NOTE | 2024-09-06 14:20 | VNURNOTE ---
Field Producer met with patient to discuss [facility] nurse/therapy, visits, schedule and homebound status. Patient is agreeable and understands that visits at home will be 2-3 x per week to assess and teach medical management.
[facility] brochure provided with contact information. Patient is aware that [facility] will contact them for start of care in 1-2 days after discharge from .
[facility] referral completed in Care Port.
[2024-09-06 15:27] VITALS: BP 113/62
== END 2024-09-06 17:04 | disposition home health service (06) | DRG 389 ==
LOC: 4 WEST ACU 21:26
PROVIDERS: Clinical Nurse Specialist Family Health; Physician Assistant; ADMITTING PHYSICIAN Internal Medicine; ATTENDING PHYSICIAN Internal Medicine; CONSULT PHYSICIAN Specialist; CONSULT PHYSICIAN Surgery; EMERGENCY PHYSICIAN Student in an Organized Health Care Education/Training Program; FAMILY PHYSICIAN Family Medicine
DX: K56.609 Unspecified intestinal obstruction, unspecified as to partial versus complete obstruction (principal); N13.30 Unspecified hydronephrosis; N17.9 Acute kidney failure, unspecified; R18.8 Other ascites; N40.0 Benign prostatic hyperplasia without lower urinary tract symptoms; E78.00 Pure hypercholesterolemia, unspecified; Z86.73 Personal history of transient ischemic attack (TIA), and cerebral infarction without residual deficits; F17.290 Nicotine dependence, other tobacco product, uncomplicated; Z79.82 Long term (current) use of aspirin; Z85.038 Personal history of other malignant neoplasm of large intestine; Z90.49 Acquired absence of other specified parts of digestive tract
CPT/HCPCS: 51702; 74019; 74176; 74177; 80053; 81003; 81015; 83690; 85025; 87086; 96360; 99285; 99406; Q9967

== ENCOUNTER 2024-11-05 06:23 | Day surgery (SDC) | payer MEDICARE, OTHER, SELFPAY ==
[2024-11-05 12:45] VITALS: BMI 23.4
[2024-11-05 12:55] VITALS: BP 116/63
[2024-11-05 13:00] VITALS: BMI 23.4
[2024-11-05 14:47] VITALS: BP 93/60
[2024-11-05 15:00] VITALS: BP 114/66
== END 2024-11-05 15:15 | disposition home or self-care (01) ==
LOC: SDS 06:23
PROVIDERS: ATTENDING PHYSICIAN Internal Medicine Gastroenterology
DX: Z12.11 Encounter for screening for malignant neoplasm of colon (principal); K64.0 First degree hemorrhoids; Q43.8 Other specified congenital malformations of intestine; Z85.038 Personal history of other malignant neoplasm of large intestine; Z98.0 Intestinal bypass and anastomosis status
CPT/HCPCS: 45386; C1726; C1769

== ENCOUNTER 2025-04-16 08:09 | Emergency (ER) | payer MEDICARE, OTHER, SELFPAY ==
[2025-04-16 08:22] VITALS: BP 109/68
[2025-04-16 08:41] VITALS: BMI 22.9
--- NOTE | 2025-04-16 08:57 | ED.GENMED ---
History of Present Illness
General
Chief Complaint: Musculo-Skeletal Complaint
Time Seen by Provider: 04/16/25 08:57
History of Present Illness
History of Present Illness:
FOCUSED PAST MEDICAL HISTORY
- The patient has a history of colon cancer, hyperlipidemia, BPH, daily alcohol use, TIA
REVIEW OF OLD RECORDS
- I reviewed records, the patient had a colonoscopy here in November 2024 and was admitted with YEIMY in September 2024
Note:
CHIEF COMPLAINT(S)
Right shoulder pain following a fall.
HISTORY OF PRESENT ILLNESS
The patient is a 74-year-old male presenting with right shoulder pain following a fall that occurred yesterday. The patient reported slipping while attempting to inspect the position of a truck near a sand mound. During the fall, he landed on his
right shoulder. He denies any previous head injury or acute chest pain associated with the incident.
The patient has noted minimal pain with specific movements and some tenderness at the biceps when palpated. He reported significant difficulty with certain motions, suggesting a possible rotator cuff injury. The shoulder X-ray was reviewed and
confirmed by the radiologist to be negative for any fracture or dislocation. The pain and limited range of motion are consistent with previous experience from a torn rotator cuff.
PAST SURGICAL HISTORY
- Hip replacement in 2005 at [facility].
CHRONIC MEDICAL CONDITIONS SIGNIFICANTLY AFFECTING CARE
- History of torn rotator cuff.
PHYSICAL EXAM
General: Alert, no acute distress, appears fairly comfortable.
Skin: Warm, dry.
Head: Normocephalic, atraumatic.
Neck: Supple, trachea midline.
Eye Ears, nose, mouth and throat: Oral mucosa moist.
Cardiovascular: Normal peripheral perfusion, No edema.
Respiratory: Respirations are non-labored.
Gastrointestinal: Abdomen nondistended.
Back: Normal range of motion, Normal alignment.
Musculoskeletal: There is markedly decreased active range of motion into abduction at the right shoulder, minimal tenderness at the proximal humerus and proximal biceps tendon, no tenderness at the clavicle or AC joint or periscapular region
Neurological: Alert and oriented to person, place, time, and situation, No focal neurological deficit observed.
Psychiatric: Cooperative, appropriate mood & affect.
PROBLEM LIST
Acute:
- Right shoulder pain likely due to possible rotator cuff injury.
PLAN
The patient was advised to use an arm sling to support the shoulder and minimize movement, reducing further pain. Recommended follow-up with an surgical instrument repair specialist, particularly with a facility known to the patient, [facility]. The patient was
educated on taking euke-hsx-otgtnbb Motrin (Ibuprofen) for pain relief and inflammation, with a prescribed dose of 600-800 mg. An orthopedic referral was provided for further evaluation and management. A dose of Motrin was administered during the
visit.
DIFFERENTIAL DIAGNOSIS
The Differential Diagnosis includes, in no particular order and is not limited to:
1. Rotator cuff tear
2. Subacromial bursitis
3. Shoulder impingement syndrome
4. Glenohumeral joint arthritis
5. Acromioclavicular joint sprain
6. Biceps tendonitis
7. Labral tear
8. Shoulder strain
9. Clavicle fracture
10. Proximal humerus fracture
RADIOLOGY
- X-ray of the right shoulder shows no evidence of fracture nor dislocation
UPDATE
-SUMMARY OF ENCOUNTER
The patient, a 74-year-old male, presented to the emergency department with right shoulder pain following a fall yesterday. The fall was described as occurring during an attempt to inspect the position of a truck near a sand mound, resulting in
landing on the right shoulder. The patient exhibited minimal pain with specific movements, and tenderness was noted near the biceps. No head injuries or acute chest pain were reported. An X-ray confirmed the absence of any fracture or dislocation.
The clinical presentation is consistent with a possible rotator cuff injury.
DISPOSITION
Discharge
ASSESSMENT
Right shoulder pain likely due to a possible rotator cuff injury.
PLAN
The patient is advised to use an arm sling to support the shoulder and limit movement to reduce pain. He will follow up with [facility] for further evaluation and management. Avrj-yqh-sbathqc NSAIDs like ibuprofen are recommended for
pain and inflammation control.
INDEPENDENT REVIEW OF LABS AND INTERPRETATION OF TESTS
My independent review of shoulder X-ray is negative for any fracture or dislocation.
PATIENT EDUCATION AND COUNSELING
The patient was educated on the use of the arm sling and the benefits of stpi-zqp-iadsdyv NSAIDs for pain management.
FOLLOW-UP INSTRUCTIONS
The patient is advised to follow up with [facility] for specialized care of the shoulder injury.
MEDICATION RECONCILIATION
A dose of ibuprofen was administered during the visit. The patient was educated on taking ibuprofen 600-800 mg, as needed for pain.
MEDICAL DECISION MAKING
-Complexity of Data Reviewed: Chronic conditions affecting care include the history of torn rotator cuff. Differential diagnosis includes rotator cuff tear, subacromial bursitis, shoulder impingement syndrome, glenohumeral joint arthritis,
acromioclavicular joint sprain, biceps tendonitis, labral tear, shoulder strain, clavicle fracture, and proximal humerus fracture.
-Data:
Category 1
My independent interpretation of shoulder X-ray is negative for any fracture or dislocation.
-Risk:
Consideration of Admission/Observation: Escalation of care including admission/observation was considered given the complexity and risk of the patients presenting complaint, exam findings, and/or their underlying comorbidities. However, ultimately I
feel the patient is safe for outpatient management with close follow up. Reasoning: Work-up reassuring, does not reveal any acute life/organ threatening processes, patients symptoms well controlled upon reevaluation, reexamination is reassuring,
vitals are stable, patient agreeable with discharge, reliable for follow-up. Prescription medication was prescribed and the medication is ibuprofen.
DIAGNOSIS
Rotator cuff tear suspected (ICD-10: S46.011A)
Past History
Past History
ED Past Medical History: Hypercholesterolemia
ED Past Surgical History: Orthopedic
Social History
Tobacco: Smoker (Pipe)
Phy Exam
Physical Exam
Physical Exam:
See HPI
Course
Orders/Labs/Results
Orders:
Orders
04/16/25 08:24
Shoulder, Right, Trauma [CR Shoulder, Trauma - Right] Urgent
Comment:
Reason For Exam: fall
04/16/25 09:07
Sling Right-Treatment ONCE
Ibuprofen [Motrin] 800 mg PO NOW STA
Vital Signs
Initial and Last Documented VS:
Initial Vital Signs
Temp Pulse Resp BP Pulse Ox
36.5 C 56 16 109/68 97
04/16/25 08:22 04/16/25 08:22 04/16/25 08:22 04/16/25 08:22 04/16/25 08:22
Last Documented Vital Signs
Temp Pulse Resp BP Pulse Ox
36.6 C 55 17 121/75 100
04/16/25 09:02 04/16/25 09:02 04/16/25 09:02 04/16/25 09:02 04/16/25 09:02
*Pulse Oximetry
SaO2: 97
Oxygen Mode of Delivery: Room air
Patient hypoxic: no
*Critical Care Note
Total Time (30-74mins, 75-104mins- exclusive of procedures): Not Applicable
ED Attending Note
-
Portions of this chart may have been created with voice recognition software.� Occasional wrong word or��sound alike� substitutions may have occurred due to the inherent limitations of voice recognition software.
Discharge Plan
Departure
Patient Disposition: Home (Routine Discharge)
Date of Disposition: 04/16/25
Time of Disposition: 09:08
Patient with high blood pressure during this ER visit?: Yes
Discharge Problem:
Injury of right rotator cuff
Instructions: Rotator cuff injury, BLOOD PRESSURE
Prescriptions:
No Action
multivitamin Tablet
1 tab PO DAILY
Nf Cbg Cbd Hemp Oil
50 ml PO DAILYPRN PRN (Reason: mild Pain)
turmeric root extract 500 mg Capsule
1,000 mg PO DAILY
coQ10 (ubiquinol) 100 mg Capsule
100 mg PO DAILY
acetaminophen 325 mg tablet
650 mg PO Q6HPRN PRN (Reason: mild pain) Qty: 14 0RF
polyethylene glycol 3350 [Miralax] 17 gram Powder In Packet
17 g PO DIRECTED
aspirin 81 mg tablet,chewable
81 mg PO DAILY
rosuvastatin 10 mg tablet
10 mg PO QPM
tamsulosin 0.4 mg Capsule
0.8 mg PO DAILY 30 Days Qty: 60 0RF
finasteride 5 mg Tablet
5 mg PO HS
Referrals:
Eulalio Noonan MD [Family Provider, Family Practice]
Santy Clemons MD [Active, Orthopedics]
Activity Restrictions/Additional Instructions:
I recommend 3-4 bnlp-qlh-jsjpsfv ibuprofen (Motrin) every 8 hours with food for a few days. Return here if worse. Use the sling as needed for comfort. I also recommend that you follow-up with [facility] such as Dr. Clemons.
Interventions
Interventions:
*Risk Screen - Suicide Last Done: 04/16/25 08:22
*General Assessment Last Done: 04/16/25 08:42
*Neglect/Abuse Screening Last Done: 04/16/25 08:22
*ED- Fall Risk Assessment Last Done: 04/16/25 08:42
*ED COVID-19 Vaccine History Last Done: 04/16/25 08:42
ED-Musculoskeletal Assessment Last Done: 04/16/25 08:45
Discharge Date and Time
Print Language: SOU[place]
[2025-04-16 09:02] VITALS: BP 121/75
[2025-04-16] MEDS: MOTRIN 800 MG PO (09:15)
== END 2025-04-16 09:30 | disposition home or self-care (01) ==
LOC: EMR 08:09
PROVIDERS: EMERGENCY PHYSICIAN Emergency Medicine; FAMILY PHYSICIAN Family Medicine
DX: S46.001A Unspecified injury of muscle(s) and tendon(s) of the rotator cuff of right shoulder, initial encounter (principal); W01.0XXA Fall on same level from slipping, tripping and stumbling without subsequent striking against object, initial encounter; E78.00 Pure hypercholesterolemia, unspecified; N40.0 Benign prostatic hyperplasia without lower urinary tract symptoms; F17.290 Nicotine dependence, other tobacco product, uncomplicated; Z79.82 Long term (current) use of aspirin; Z86.73 Personal history of transient ischemic attack (TIA), and cerebral infarction without residual deficits; Z85.038 Personal history of other malignant neoplasm of large intestine; Z96.649 Presence of unspecified artificial hip joint
CPT/HCPCS: 99283; 73030

== ENCOUNTER → 2025-05-26 08:55 | Outpatient (REF) | payer MEDICARE, OTHER, SELFPAY ==
[2025-05-26 10:11] LABS: Hematocrit 45.9 % (39.0-52.0); Hemoglobin 14.8 g/dL (13.0-18.0); Mean Corp Hgb Conc. 32.2 g/dL (33.0-37.0); Mean Corpuscular Volume 98.1 fL (80.0-94.0); Nucleated Red Blood Cells % 0 % (-); Platelet Count 274 10^3/uL (130-400); Red Cell Dist. Width 14.4 % (11.5-14.5)
[2025-05-26 10:12] LABS: Blood Urea Nitrogen 26 mg/dl (9-20); Calcium 10.1 mg/dl (8.4-10.2); Carbon Dioxide 28 mmol/L (22-30); Chloride 106 mmol/L (98-107); Glucose 103 mg/dl (70-99); Potassium 4.6 mmol/L (3.5-5.1); Sodium 137 mmol/L (135-145); eGFR > 60.00
== END ==
LOC: RCS 08:55
PROVIDERS: ATTENDING PHYSICIAN Orthopaedic Surgery Hand Surgery; FAMILY PHYSICIAN Family Medicine
DX: Z01.818 Encounter for other preprocedural examination (principal)
CPT/HCPCS: 36415; 80048; 85025; 86850; 86900; 86901; 93005

== ENCOUNTER 2025-06-01 06:09 | Day surgery (SDC) | payer MEDICARE, OTHER, SELFPAY ==
[2025-06-01] VITALS (8 sets, daily range): BP systolic 104–128; BP diastolic 56–71; BMI 23.3
[2025-06-01] MEDS: CELEBREX 200 MG PO (11:31)
[2025-06-01] MEDS: TYLENOL 1000 MG PO (11:31)
[2025-06-01] MEDS: NORMOSOL-R/PLASMALYTE-A 1000 IV (11:32)
== END 2025-06-01 16:00 | disposition home or self-care (01) ==
LOC: SDS 06:09
PROVIDERS: ATTENDING PHYSICIAN Orthopaedic Surgery Hand Surgery
DX: S46.011A Strain of muscle(s) and tendon(s) of the rotator cuff of right shoulder, initial encounter (principal); S46.219A Strain of muscle, fascia and tendon of other parts of biceps, unspecified arm, initial encounter; X58.XXXA Exposure to other specified factors, initial encounter
CPT/HCPCS: 23430

== ENCOUNTER 2025-07-05 06:26 | Day surgery (SDC) | payer MEDICARE, OTHER, SELFPAY ==
[2025-07-05] VITALS (12 sets, daily range): BP systolic 107–155; BP diastolic 62–85; BMI 23.4
[2025-07-05] MEDS: NORMOSOL-R/PLASMALYTE-A 1000 IV (12:34)
--- NOTE | 2025-07-05 12:47 | PTCARENOTE ---
No need to do urine culture per Dr. Lipscomb due to patient needing to be straight cathed for the sample. Will monitor patient.
--- NOTE | 2025-07-05 14:29 | W.PN.URO.CBU ---
Today's Communication / Plan
-
continue cbi
Assessment / Plan
-
stable pos t op turp plan too decrease cbi by am keep fley recheck h/h in am
Diagnosis
-
Date of Service: July 05, 2025
-
Patient Diagnosis:bph with retention s/p turp today
Post Op Day:
Subjective
-
min discomfort
Objective
-
Vital Signs
Temp Pulse Resp BP Pulse Ox
98.0 F 59 16 119/70 99
07/05/25 12:29 07/05/25 12:29 07/05/25 12:29 07/05/25 12:29 07/05/25 12:29
Physical Exam
-
General - well developed, well nourished, no acute distress
Chest - clear bilaterally
Abdomen - soft, non-tender, positive bowel sounds, no CVAT, no incisional pain or distention
Genitalia - normal
Rectal - normal
Skin - warm & dry with no rash
Neuro - AOx3, no motor deficits
Extremities - no clubbing, no cyanosis, no edema
Incision - clean, dry
Dressing - clean, dry, intact
Counseling
-
cbi hand irrigate prn major clots no flow
Care Review
Data Reviewed
Discussed with: Internal Medicine and Family
[2025-07-05] MEDS: DETROL LA 4 MG PO (15:01)
--- NOTE | 2025-07-05 17:24 | PTCARENOTE ---
Addendum entered by Kylie White RN 07/05/25 17:41:
Dr. Lipscomb notified of bloody urine and advised to continue with CBI wide open. Care ongoing.
Original Note:
Pt arrived to [facility] s/p TUR. 3 way sosa catheter with bloody output. CBI infusing wide open. Pt bedrest. Knee high scds on pt. 99% on RA and diminished at the bases. Admission questions answered. Spouse at bedside. Bed locked and in lowest
position. Care ongoing.
[2025-07-05] MEDS: FLOMAX 0.4 MG PO (18:23)
[2025-07-05] MEDS: CRESTOR 10 MG PO (18:23)
[2025-07-05] MEDS: BACTRIM DS 800 MG/160 MG 1 TABLET PO (19:50)
[2025-07-05] MEDS: PROSCAR 5 MG PO (21:47)
[2025-07-06 03:00] VITALS: BP 116/67
[2025-07-06 06:18] LABS: Hematocrit 35.5 % (39.0-52.0); Hemoglobin 12.0 g/dL (13.0-18.0)
[2025-07-06 07:24] VITALS: BP 115/70
[2025-07-06] MEDS: THERAGRAN 1 TABLET PO (08:43)
[2025-07-06] MEDS: BACTRIM DS 800 MG/160 MG 1 TABLET PO (08:43)
--- NOTE | 2025-07-06 09:01 | W.DCSUMMARY ---
Discharge Summary
Discharge Data
Date of Admission: 07/05/25
Date of Discharge: 07/06/25
Total time spent discharging patient (in min): 30 mins
-
Pending Results: Yes (path report)
Hospital Course
The pt has bph retention had turp stable over ngnt will d/c with sosa and pt to [facility]
Discharge Plan
-
Patient Disposition: Home (Routine Discharge)
Discharge Diagnosis/Procedures: bph urinary retention
Condition: Good
Diet: No restrictions
Activity: No restrictions
Referrals:
Riley Lipscomb MD [Active, Urology]
Referral Note: call dr lipscomb [phone] followup mid aug but sooner if issues Expect blood in urine for few weeks increase fluids when see visible blood call today for appt tomorrow for voiding trial
UNKNOWN - PT NOT,INTERVIEWE [Family Provider]
Prescriptions:
Continued
multivitamin Tablet
1 tab PO DAILY
turmeric root extract 500 mg Capsule
1,000 mg PO DAILY
coQ10 (ubiquinol) 100 mg Capsule
100 mg PO DAILY
aspirin 81 mg tablet,chewable
81 mg PO DAILY
rosuvastatin 10 mg tablet
10 mg PO QPM
finasteride 5 mg Tablet
5 mg PO HS
Cbd Cannabidiol/Hemp Oil
0.5 ml PO PRN PRN (Reason: PAIN)
tamsulosin 0.4 mg capsule
0.4 mg PO QPM
sulfamethoxazole-trimethoprim 800-160 mg Tablet
1 tab PO BID
Discharge Orders:
Discharge Patient (As Directed); Ordered 07/06/25
Ordered By: Riley Lipscomb
Discharge Date and Time
Print Language: COMORAN
--- NOTE | 2025-07-06 09:31 | CM ---
Addendum entered by Mey Michel 07/06/25 09:47:
Home with spouse no needs.
Original Note:
Patient lives with spouse in a 2 story home steps to enter, patient is independent with adl's and ambulation, no dme, patient drives, home with spouse when stable, per surgery home with [place] will check on VN.
PCP: Dr Noonan
Pharmacy: [facility] on [address]
[2025-07-06 11:45] VITALS: BP 130/66
== END 2025-07-06 14:43 | disposition home or self-care (01) ==
LOC: SDS 06:26
PROVIDERS: ATTENDING PHYSICIAN Specialist
DX: N32.3 Diverticulum of bladder (principal); N40.1 Benign prostatic hyperplasia with lower urinary tract symptoms; R33.8 Other retention of urine; N41.1 Chronic prostatitis
CPT/HCPCS: 52601; 85014; 85018; 87077; 87086; 87186; 88305